=== PATIENT | female | born 1940 | race Caucasian/White ===

== ENCOUNTER 2023-11-21 14:11 | Inpatient (IN) | payer MEDICARE, OTHER, SELFPAY ==
[2023-11-21] VITALS (15 sets, daily range): BP systolic 124–177; BP diastolic 70–114; BMI 25.3; BMI 24.7
--- NOTE | 2023-11-21 09:36 | ED.CVA ---
History of Present Illness
General
Chief Complaint: CVA/TIA Symptoms
Source: patient and spouse
Exam Limitations: none
Time Seen by Provider: 11/21/23 09:21
Nursing documentation reviewed up to this point in time: agreed with
Onset of Stroke Symptoms
Onset of symptoms known: Yes
Date of onset of symptoms: 11/21/23
Time of onset of symptoms: 08:20
Date last time pt seen normal: 11/21/23
Time last time pt seen normal: 08:15
Travel History
Have you had any contact with someone who has COVID-19?: No
Do you have any symptoms of coronavirus? Fever > 100 degrees, chills, cough, shortness of breath, sore throat, loss of taste or smell, muscle aches, or headache?: No
History of Present Illness
History of Present Illness:
Patient is a pleasant 82-year-old female with a past medical history of subdural hematoma, A-fib on Eliquis, and a pacemaker, who presents with acute onset of numbness of the the left thigh, left cheek and left arm that she noticed 45 minutes prior
to arrival. Patient reports that she went to walk and almost stumbled. However, she denies weakness, headache, vision changes, and speech difficulties. Patient reports she had a brain bleed in 2000 and had similar symptoms. Patient denies all
pain. She was previously well.
Past History
Past History
ED Past Medical History: Cancer (Breast cancer), HTN, Valvular disease (Mitral regurgitation) and Psychiatric (Anxiety)
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
Social History
Tobacco: Former smoker
Alcohol: Daily (Wine 1-2 glasses)
Personal:
Living: with family
Family History
Family History: Hypertension and CAD
Review of Systems
Review of Systems
Allergies reviewed?: Yes
Other source history: family
All Other Systems: ROS reviewed and negative except as documented in HPI and ROS
Constitutional: Reports no symptoms
EENT: Reports no symptoms
Respiratory: Reports no symptoms
Cardiac: Reports no symptoms
ABD/GI: Reports no symptoms
: Reports no symptoms
Musculoskeletal: Reports no symptoms
Skin: Reports no symptoms
Neurological: Reports numbness
Endocrine: Reports no symptoms
Hematologic/Lymphatic: Reports no symptoms
Psychiatric: Reports no symptoms
Phy Exam
Physical Exam
Physical Exam:
Physical Exam
General: no apparent distress, not acutely ill. Conversational
Neck: supple. no meningeal signs. normal psoterior pharynx
Heart: s1/s2 regular rate and rhythm
Lungs: no acute respiratory distress. clear bilaterally
Abdomen: normal bowel sounds. not tender. no CVAT
Neuro: alert and orientedx3. no focal neurological deficits. Cranial nerves equal and symmetric bilaterally. 5 out of 5 strength in all extremities without drift. Speech sounds normal. Patient notes diminished
sensation of left cheek, left arm, left forearm and left thigh area.
Skin: no rash
Psychiatric: well kept. interactive and cooperative
Extremities: no edema. no calf tenderness. negative homans. good distal pulses
Scores
NIH Stroke Score
Level of Consciousness: 0 - Alert
LOC Questions: 0-Answers both correctly
LOC Commands: 0-Performs both correctly
Best Horizontal Gaze: 0-Normal
Visual Rivera: 0=Normal, no visual loss
Facial Palsy: 0=Normal, symmetrical
Motor - Right Arm: 0=No drift 10 seconds
Motor - Left Arm: 0=No drift 10 seconds
Motor - Right Le-No drift 5 seconds
Motor - Left Le-No drift 5 seconds
Limb Ataxia: 0-Absent
Sensation: 1-Mild loss
Best Language: 0-No aphasia
Dysarthria: 0-Normal
Extinction and Inattention: 0-No abnormality
Total Score:: 1
MRS Score
Modified Patrick Scale (mRS): No significant disability. Able to carry out usual activities.
Score: 1
Thrombolytic Contraindication
Inclusion and Exclusion criteria reviewed: Yes
Reasons for NON-Tx with Thrombolytics ABSOLUTE Exclusions: Patient taking oral anticoagulant and last dose within 48 hours
IAT Contraindications: Imaging doesn't show large vessel occlusion as cause of stroke
Course
Orders/Labs/Results
Orders:
Orders
11/21/23 09:21
CT Head W/o Cont STROKE ALERT Urgent
Comment:
Reason For Exam: L facial, arm, and leg numbness 45 min SHALE MINER
CT Head/Neck Ang STROKE ALERT Urgent
Comment:
Reason For Exam: L body numbness 45 min SHALE MINER
11/21/23 09:23
Electrocardiogram (*1) Urgent
Reason for Study: Fatigue / Weakness
EKG- Treatment ONCE
11/21/23 09:30
Complete Blood Count/With Diff Urgent
Comprehensive Metabolic Panel Urgent
PTT Urgent
Prothrombin Time Urgent
Abnormal Lab Results
11/21/23
09:30
MCH 31.4 H pg
(27.0-31.0)
Neutrophils % 39.5 L %
(42.2-75.2)
PT 16.3 H Sec
(11.4-14.6)
Glucose 123 H mg/dl
(70-99)
11/21/23 09:30
11/21/23 09:30
Vital Signs
Initial and Last Documented VS:
Initial Vital Signs
Temp Pulse Resp BP Pulse Ox
97.5 F 87 16 171/111 98
11/21/23 09:12 11/21/23 09:12 11/21/23 09:12 11/21/23 09:12 11/21/23 09:12
Last Documented Vital Signs
Temp Pulse Resp BP Pulse Ox
97.5 F 89 26 135/70 94
11/21/23 09:12 11/21/23 10:00 11/21/23 10:00 11/21/23 09:50 11/21/23 10:00
MDM/Problems Addressed
Differential Diagnosis Includes:
Acute CVA, aortic dissection, paresthesias
MDM/Problems Addressed:
Patient presents with acute numbness of left side of body
Chronic conditions affecting care:
Given patient has history of hypertension, she is at increased risk of hypertensive urgency and emergency
Chronic conditions affecting care: HTN
Acute Exacerbation and/or Progression of Chronic Illness:
Patient is acutely hypertensive which may be causing her neurological deficits
Acute Exacerbation and/or Progression of Chronic Illness: HTN
*Radiology
Radiology exam reviewed: radiology read reviewed
*Pulse Oximetry
Patient hypoxic: no
*EKG
Interpreted by ED Provider?: Yes
Interpretation: abnormal
Comparison EKG: no changes
Rate: normal
Rhythm: av sequential
[place]: left axis deviation
Interval: normal interval
QRS Pattern: normal QRS
Ischemia: non-specific ST changes
*Stone Planer Interpretation
Rate: normal
Interpretation: normal
Rhythm: av sequential
*Critical Care Note
Total Time (30-74mins, 75-104mins- exclusive of procedures): 35 minutes
comment:
35 minutes of critical care given to the patient including frequent reassessments of her neurological exam, speaking to neurology, the patient, the patient's , the hospitalist and reviewing prior records when patient had a subdural hematoma
Data Reviewed
Review of Other/Old Records Reveals: Progress Notes (Neurology consult by Dr. Schulz reviewed from 02/2021 when patient was evaluated for acute on subacute subdural hematoma)
Source: patient and spouse
Patient Management
Discussion with other providers: Hospitalist and Other (NEUROLOGY AT BEDSIDE)
Escalation/DeEscalation of care consider admission/obs:
Given patient's low stroke score, she is not a TNK candidate. In addition, she takes Eliquis. Patient will be admitted for likely stroke. Blood pressure greatly improved on own.
ED Attending Note
-
Portions of this chart may have been created with voice recognition software.� Occasional wrong word or��sound alike� substitutions may have occurred due to the inherent limitations of voice recognition software.
Discharge Plan
Departure
Patient Disposition: Admit
Date of Disposition: 11/21/23
Time of Disposition: 10:33
Admit to: Telemetry
Presentation/result/management discussed w/ accepting MD/DO: Hospitalist
Patient with high blood pressure during this ER visit?: Yes
Condition: Fair
Covid-19: Not Applicable
Discharge Problem:
Acute cerebrovascular accident (CVA)
Prescriptions:
No Action
carvedilol 12.5 MG tablet
12.5 mg PO BID
amitriptyline 25 MG tablet
25 mg PO HS
nhlsn-6s-cal-epa-fish oil 1 EACH capsule
2 cap PO DAILY
vit C,O-Jc-rthkr-lutein-zeaxan [PreserVision AREDS-2] 1 EACH capsule
1 cap PO BID
atorvastatin 10 MG tablet
10 mg PO QPM
multivitamin with folic acid [Tab-A-Juan Carlos] 1 TABLET tablet
1 tab PO DAILY
lisinopril 20 MG tablet
20 mg PO DAILY
polyvinyl alcohol-povidon(PF) [Refresh Classic (PF)] 10 DROPS dropperette
1 drops BOTH EYES QIDPRN PRN (Reason: EYE IRRITATION)
aspirin 81 MG tablet,delayed release (DR/EC)
81 mg PO DAILY
Referrals:
Prabhjot Johnson I. DO [Family Provider] -
Interventions
Interventions:
*Risk Screen - Suicide Last Done: 11/21/23 09:53
*General Assessment Last Done: 11/21/23 09:53
*Neglect/Abuse Screening Last Done: 11/21/23 09:53
ED- Fall Risk Assessment Last Done: 11/21/23 09:52
*ED COVID-19 Vaccine History Last Done: 11/21/23 09:53
ED- Pulmonary Assessment Last Done: 11/21/23 09:54
ED- Neurological Assessment Last Done: 11/21/23 09:54
ED- Cardiac Assessment Last Done: 11/21/23 09:54
ED Swallowing Screen Last Done: 11/21/23 10:15
[2023-11-21 09:37] LABS: % Basophils 0.9 % (0-2); % Eosinophils 4.3 % (0-6); % Immature Granulocytes 0.2 % (0-0.5); % Lymphocytes 46.9 % (20.5-51.1); % Monocytes 8.2 % (1.7-9.3); % Neutrophils 39.5 % (42.2-75.2); Absolute Basophils 0.1 10^3/uL (0-0.2); Absolute Eosinophils 0.2 10^3/uL (0-0.7); Absolute Lymphocytes 2.5 10^3/uL (1.2-3.4); Absolute Monocytes 0.4 10^3/uL (0.1-0.6); Absolute Neutrophils 2.1 10^3/uL (1.4-6.5); Hematocrit 42.6 % (37.0-47.0); Hemoglobin 14.4 g/dL (12.0-16.0); Mean Corp Hgb Conc. 33.8 g/dL (33.0-37.0); Mean Corpuscular Hgb 31.4 pg (27.0-31.0); Mean Platelet Volume 9.6 fL (7.4-10.4); Nucleated Red Blood Cells % 0 %; Platelet Count 228 10^3/uL (130-400); Red Blood Cell Count 4.58 10^6/uL (4.20-5.40); White Blood Cell Count 5.4 10^3/uL (4.8-10.8)
[2023-11-21 09:49] LABS: INR 1.32; PT 16.3 Sec (11.4-14.6)
[2023-11-21 09:50] LABS: APTT 32.3 Sec (23.4-35.0)
[2023-11-21 09:58] LABS: ALT (SGPT) 20 U/L (0-35); AST (SGOT) 33 U/L (14-36); Alkaline Phosphatase 58 U/L (38-126); Blood Urea Nitrogen 15 mg/dl (7-17); Calcium 8.8 mg/dl (8.4-10.2); Carbon Dioxide 27 mmol/L (22-30); Chloride 106 mmol/L (98-107); Estimated Creatinine Clearance 70 ml/min; Glucose 123 mg/dl (70-99); Potassium 4.3 mmol/L (3.5-5.1); Sodium 139 mmol/L (135-145); Total Protein 6.9 g/dl (6.3-8.2); eGFR > 60.00
--- NOTE | 2023-11-21 13:59 | HPS.HSE ---
Family Physician
-
Family Physician: Prabhjot Johnson
Chief Complaint
-
Left face, arm, leg numbness.
History of Present Illness
Left face, arm, leg numbness.
Patient had acute onset of the symptoms at 8:15 AM today. It started in the left leg. She also felt that at one point her left leg buckled and felt weak once and that resolved quickly. Then she started noticed similar symptoms in the left arm and
the face. Currently much improved. Left arm numbness resolved. Left leg numbness is almost gone now she has some residual numbness in the left face. No headache. No vision problem. No speech disturbance.
No associated headache, confusion during the episode, dizziness during the episode or any limb movements.
In the past 2 months that twice she had a left leg similar symptom but lasted shorter like 5 minutes.
No prior history of strokes or TIAs. She is got history of atrial fibrillation diagnosed in 2022 and was put on Eliquis.
No prior history of seizures. Not a diabetic.
No head trauma
Medical History
Past Medical History
Past Medical History: Reports Arrhythmia (afib), Cancer (Breast cancer ), CHF (Cardiomyopathy requiring AICD post cancer treatment), HTN, Hypercholesterolemia and Other (Subdural hematoma in 2000 requiring craniotomy)
Past Surgical History: Reports Cardiac (MVR 2004), Cholecystectomy and Other
Social History
Tobacco: Non-smoker
Alcohol: None
Drug: None
Personal:
Living: With Family
Family History
Family History: Not pertinent
Allergies / Home Medications
Allergies reflects when Allergies were last updated in [employer].
Home Medications with original date entered in [employer]
Allergy/Medication List:
Allergies
Allergy/AdvReac Type Severity Reaction Status Date / Time
No Known Allergies Allergy Verified 02/25/22 09:38
Home Medications
amitriptyline 25 mg tablet 25 mg PO HS Sleep 02/19/09
carvedilol 12.5 mg tablet 12.5 mg PO BID Blood pressure 02/19/09
vit C 250 mg-vit E 90 mg-zinc 40 mg-copper 1 xx-lurteu-habaen capsule (PreserVision AREDS-2) 1 cap PO BID Supplement 05/11/17
atorvastatin 10 mg tablet 10 mg PO QPM High cholesterol 02/28/21
lisinopril 20 mg tablet 20 mg PO DAILY Blood pressure 02/28/21
multivitamin with folic acid 400 mcg tablet (Tab-A-Juan Carlos) 1 tab PO DAILY 02/28/21
polyvinyl alcohol-povidone (PF) 1.4 %-0.6 % eye drops in a dropperette (Refresh Classic (PF)) 1 drops BOTH EYES QIDPRN PRN EYE IRRITATION 02/28/21
apixaban 5 mg tablet (Eliquis) 5 mg PO BID 11/21/23
omega 0-enj-fot-fish oil 1,000 mg (120 mg-180 mg) capsule (Fish Oil) 2 cap PO DAILY 11/21/23
Review of Systems
-
A 12 point ROS was completed and negative except as noted: Yes
Physical Exam
Vital Signs
Vital Signs
Temp Pulse Resp BP Pulse Ox
97.5 F 80 18 143/78 96
11/21/23 09:12 11/21/23 12:45 11/21/23 12:45 11/21/23 12:00 11/21/23 12:45
Physical Exam
General: No Apparent Distress
HEENT: Moist mucous membranes
Respiratory: Clear
Cardiac: S1/S2 and Regular Rhythm; No JVD or Carotid Bruits
GI: Soft, Non Tender, Non Distended and Normal Bowel Sounds
Musculoskeletal: No No Edema
Neuro: AO x 3 and No Motor Deficits; No Slurred Speech or Facial Droop
Psych: Calm; No Confused
Laboratory Results
-
11/21/23 09:30
11/21/23 09:30
Laboratory Results
PT 16.3 Sec (11.4-14.6) H 11/21/23:30
INR 1.32 11/21/23:30
APTT 32.3 Sec (23.4-35.0) 11/21/23:30
Total Bilirubin 1.0 mg/dl (0.2-1.3) 11/21/23:
AST 33 U/L (14-36) 11/21/23:30
ALT 20 U/L (0-35) 11/21/23:30
Alkaline Phosphatase 58 U/L (38-126) 11/21/23:
Data Reviewed
-
CT Scan: Report Reviewed by me (CT head)
Lab Data: Labs Reviewed by me
Impression/Plan
-
Acute left arm, leg and face numbness which is spontaneously improving. Recurrent left-sided numbness twice in the last 2 months. All concerning for TIA. [place] not a candidate for tPA because of mild symptoms and resolving symptoms.
Admit to telemetry.
Obtain MRI of the brain. Check imaging of the carotids. Check lipid profile. Check hemoglobin A1c.
Consult neurology.
Doubt seizures. No evidence of hypoglycemia.
Atrial fibrillation-patient currently AV paced rhythm. Continue with EliquisRito.
Hx of pacemaker/AICD - clinically not in heartfailure
Hyperlipidemia-continue with statins-check lipid panel
Hypertension-continue with her lisinopril and permissive hyper tension for the first 24 hours
Full code
--- NOTE | 2023-11-21 15:52 | CM ---
Patient seen bedside, initial assessment completed. Patient reports she lives with her in a two story home, one step to enter. Patient denies DME, VN, or SNF. Patient confirms PCP Prabhjot Johnson, pharmacy [facility]. CM will continue to
follow for discharge planning needs.
Plan; home no needs pending PT/OT evaluations.
--- NOTE | 2023-11-21 16:30 | PTCARENOTE ---
Received patient from ED via stretcher. Pt AAOX3. NIH 0 at this time. A paced on handicrafts teacher. VSS. Call wells within reach. Plan of care ongoing. at bedside.
[2023-11-21] MEDS: LIPITOR 10 MG PO (17:41)
[2023-11-21] MEDS: COREG 12.5 MG PO (20:24)
[2023-11-21] MEDS: ELIQUIS 5 MG PO (20:24)
[2023-11-21] MEDS: ELAVIL 25 MG PO (22:21)
--- NOTE | 2023-11-22 01:21 | PTCARENOTE ---
Pt with 12 beat run vtach on telemetry, pt asymptomatic, sleeping in bed- BP checked initially 97/60 repeat 104/60. House INBOUND SALES REPRESENTATIVE aware.
[2023-11-22 01:26] VITALS: BP 104/60; BP 97/60
[2023-11-22 03:27] VITALS: BP 121/75
[2023-11-22 07:17] VITALS: BP 127/81
[2023-11-22] MEDS: ELIQUIS 5 MG PO (08:10)
[2023-11-22] MEDS: ZESTRIL 20 MG PO (08:10)
[2023-11-22] MEDS: THERAGRAN 1 TABLET PO (08:10)
[2023-11-22] MEDS: COREG 12.5 MG PO (08:10)
[2023-11-22 08:42] LABS: Glycohemoglobin (HgbA1c) 5.5 % (4.0-5.6)
[2023-11-22 09:05] LABS: HDL Cholesterol 51 mg/dl; LDL Cholesterol, Calculated 52 mg/dl; Total Cholesterol 115 mg/dl (50-199); Triglyceride 62 mg/dl (10-149); Very Low Density Lipoprotein 12 mg/dl (0-30)
[2023-11-22 09:15] VITALS: BP 154/100; PULSE 82
[2023-11-22 11:45] VITALS: BP 141/90
--- NOTE | 2023-11-22 12:22 | W.PN.HOSP.TC ---
Addendum entered and electronically signed by Edison Bose MD 11/22/23 15:00:
Follow-up with EEG neurology recommends a TTE/LAYNE to evaluate for thrombus.
Patient says to me that she has scheduled ECHO for this thursday by her dog licenser and she would get it .
She doesnt want to stay to get it done here tomorrow. She understands the reasoning of thrombus evaluation and if present changes warranted for her anticoagulation.
Advised to return to ER if recurrent symptoms of leg/arm/face numbness or weaknkess
Original Note:
Today's Communication/Plan
-
DC planning
Assessment / Plan
Assessment / Plan
Acute left arm, leg and face numbness-resolved.� Recurrent left-sided numbness twice in the last 2 months.� All concerning for TIA.� [place] not a candidate for tPA because of mild symptoms and resolving symptoms.�
CT head without any evidence of stroke. CT head and neck shows no significant stenosis. Hemoglobin A1c 5.5. LDL 53. She is on anticoagulation for A-fib.
Await neurology input
Atrial fibrillation-patient currently AV paced rhythm.� Continue with EliRito mccallum.
Hx of pacemaker/AICD - clinically not in heart failure
Hyperlipidemia-continue with statins-check lipid panel
Hypertension-continue with her lisinopril
Full code
DC if ok from neurology standpoint
Anticipated Discharge: Today
Subjective/Interval History
-
Date of Service: November 22, 2023
Patient states symptoms have resolved she is back to baseline.
She tells me that she has seen by neurologist and cleared for discharge. Neurology note entry still pending.
Objective Data
-
Vital Signs:
Vital Signs
Temp Pulse Resp BP Pulse Ox
97.8 F 82 18 141/90 97
11/22/23 11:45 11/22/23 11:45 11/22/23 11:45 11/22/23 11:45 11/22/23 11:45
I&O
11/21/23 11/22/23 11/23/23
06:59 06:59 06:59
Intake Total 440 / 440
Balance 440 / 440
Review of Systems
-
Respiratory: Denies Trouble Breathing
Cardiac: Denies Chest Pain or Palpitations
Neuro: Denies Dizzy, Headache, Weakness, Numbness, Ataxia or Tremors
Physical Exam
-
General: Comfortable
Respiratory: Clear to Auscultation
Cardiac: Regular Rhythm and S1/S2
Neuro: AO x 3 and No Motor Deficits; Negative Tremors, Slurred Speech or Facial Droop
Psych: Calm; Negative Confused or Agitated
Data Reviewed
-
Labs: Labs Reviewed by me
--- NOTE | 2023-11-22 12:26 | W.DS.TRANS ---
DC Summary - Smoking Pipe Coater
-
Discharge Instructions:
Discharge Diagnosis/Procedures Possible TIA
Diet Low Cholesterol,2 Gram Sodium
Activity As tolerated
Driving Restrictions As prior to admission
Bathing Restrictions None
Instructions:
Stand-Alone Forms:
Changes to Home Medications: No
Discharge Medications:
DC Medications w/original date entered in [employer]
amitriptyline 25 mg tablet 25 mg PO HS Sleep 02/19/09
carvedilol 12.5 mg tablet 12.5 mg PO BID Blood pressure 02/19/09
vit C 250 mg-vit E 90 mg-zinc 40 mg-copper 1 vd-omlwtw-dbnsnl capsule (PreserVision AREDS-2) 1 cap PO BID Supplement 05/11/17
atorvastatin 10 mg tablet 10 mg PO QPM High cholesterol 02/28/21
lisinopril 20 mg tablet 20 mg PO DAILY Blood pressure 02/28/21
multivitamin with folic acid 400 mcg tablet (Tab-A-Juan Carlos) 1 tab PO DAILY Supplement 02/28/21
polyvinyl alcohol-povidone (PF) 1.4 %-0.6 % eye drops in a dropperette (Refresh Classic (PF)) 1 drops BOTH EYES QIDPRN PRN EYE IRRITATION 02/28/21
apixaban 5 mg tablet (Eliquis) 5 mg PO BID Blood Clot Prevention/Tx 11/21/23
omega 3-csd-tpc-fish oil 1,000 mg (120 mg-180 mg) capsule (Fish Oil) 2 cap PO DAILY Supplement 11/21/23
Home Medication Changes
Pending Results: No
--- NOTE | 2023-11-22 13:06 | CM ---
Patient seen, discussed plan for discharge today. IMM reviewed, signed, placed in patients chart. Patient reports her will provide transportation home. CM will continue to follow for discharge planning needs.
Plan; home no needs.
[2023-11-22 15:21] VITALS: BP 157/99
--- NOTE | 2023-11-22 16:04 | W.DCSUMMARY ---
Discharge Summary
Discharge Data
Date of Admission: 11/21/23
Date of Discharge: 11/22/23
-
Pending Results: No
Hospital Course
Primary diagnosis:
Possible transient ischemic attack
Secondary diagnosis:
Hypertension
Hyperlipidemia
Paroxysmal Atrial fibrillation on anticoagulation
Pacemaker/AICD in situ
History of breast cancer status postchemotherapy and mastectomy
History of subdural hemorrhage status post craniotomy
Hospital course:
Patient presented with acute onset of left leg numbness which later went to the and to the face. No motor weakness noted. No other neurological symptoms or deficits noted. She had 2 similar episode affecting the left leg in the last 2 months.
Both of them are short-lived less than 5 minutes. She had a CT of the head which was negative for any stroke. She had a CT angiogram of the head and neck which did not show any hemodynamically significant stenosis. Blood pressure was under goal.
LDL was 52. Hemoglobin A1c was 5.5. Was seen by neurology who felt this may be a TIA. She is already on Eliquis for anticoagulation. They recommended to get a echocardiogram to look for any thrombus and if present may be consider an alternative
anticoagulation.
Patient's symptoms are already resolved and she was adamant of leaving home tonight as she already has a plan for echocardiogram on this Thursday by her data processing operator. She was advised to return to the hospital if she has any recurrent symptoms. No
changes were made to her medication regimen.
Consultants on board:
Neurology-Dr. Garcia
Discharge Plan
-
Patient Disposition: Home (Routine Discharge)
Discharge Diagnosis/Procedures: Possible TIA
Diet: Low Cholesterol and 2 Gram Sodium
Activity: As tolerated
Driving Restrictions: As prior to admission
Bathing Restrictions: None
Activity Restrictions/Additional Instructions:
Obtain Echocardiogram as planned as OP
If you develop any recurrent symptoms of leg/arm/face numbness come to ER immediately
Referrals:
Alex,Prabhjot I., DO [Family Provider] - in less than 1 week
Judy Garcia MD [Active] - in two weeks
Prescriptions:
Continued
carvedilol 12.5 MG tablet
12.5 mg PO BID
amitriptyline 25 MG tablet
25 mg PO HS
PreserVision AREDS-2 1 EACH capsule
1 cap PO BID
atorvastatin 10 MG tablet
10 mg PO QPM
multivitamin with folic acid [Tab-A-Juan Carlos] 1 TABLET tablet
1 tab PO DAILY
lisinopril 20 MG tablet
20 mg PO DAILY
Refresh Classic (PF) 10 DROPS dropperette
1 drops BOTH EYES QIDPRN PRN (Reason: EYE IRRITATION)
omega 4-axs-hef-fish oil [Fish Oil] 1,000 mg (120 mg-180 mg) Capsule
2 cap PO DAILY
Eliquis 5 mg Tablet
5 mg PO BID
Discharge Orders:
Discharge Patient (As Directed); Ordered 11/22/23
Ordered By: Edison Bose
Discharge Date and Time
Discharge Date/Time: 11/22/23 15:24
== END 2023-11-22 15:24 | disposition home or self-care (01) | DRG 69 ==
LOC: 4 EAST ACU 14:11
PROVIDERS: ADMITTING PHYSICIAN Internal Medicine; EMERGENCY PHYSICIAN Emergency Medicine; FAMILY PHYSICIAN Internal Medicine
DX: G45.9 Transient cerebral ischemic attack, unspecified (principal); E78.00 Pure hypercholesterolemia, unspecified; I11.0 Hypertensive heart disease with heart failure; I50.9 Heart failure, unspecified; I48.0 Paroxysmal atrial fibrillation; Z95.810 Presence of automatic (implantable) cardiac defibrillator; Z85.3 Personal history of malignant neoplasm of breast
CPT/HCPCS: 70450; 70496; 70498; 80053; 80061; 83036; 85025; 85610; 85730; 93005; 97162; 99291; Q9967

== ENCOUNTER → 2023-11-24 14:46 | Outpatient (REF) | payer MEDICARE, OTHER, SELFPAY ==
--- NOTE | 2023-11-21 09:49 | CON.NEURO ---
Consultation
Order
Date of Consultation: 11/21/23
Requesting Provider:
Reason for Consult: stroke alert
called in at 9:14 AM
CC: numbness
HPI: This is an 82-year-old right-handed woman who presented to [facility] on November 21, 2023 with sensory deficits. According to the patient she developed an acute left face arm and leg numbness that started around 8 AM today in the
morning. No reports of weakness, change in vision, speech or abnormal movements. She did take her Eliquis today in the morning
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
ER VS: 171/111, 87, afebrile
PDMP: none
Labs: glucose�123, normal sodium, creatinine, WBCs
CT head/neck-no hemodynamically significant stenosis
EKG: Atrial-sensed ventricular-paced rhythm
PMH: L breast CA, PA-Fib, Vtach, L SAH/SDH?, CAD, HTN, DLP, CHF, cardiomyopathy thrombophilia, migraine JOHN
PSH: left craniotomy�, PPM/AICD, MVR, L mastectomy, �cholecystectomy
SH:; former smoker;
All: Macrolides
ROS:Constitutional: Negative. Negative for chills, fever and unexpected weight change.
HENT: Negative for ear pain, hearing loss, tinnitus and trouble swallowing.
Eyes: Negative. Negative for photophobia, pain and visual disturbance.
Respiratory: Negative for cough, choking and shortness of breath.
Cardiovascular: Negative for chest pain, palpitations and leg swelling.
Gastrointestinal: Negative for abdominal pain and vomiting.
Endocrine: Negative. Negative for cold intolerance.
Genitourinary: Negative for dysuria, flank pain and urgency.
Musculoskeletal: Negative for back pain, gait problem, neck pain and neck stiffness.
Skin: Negative for rash.
Allergic/Immunologic: Negative. Negative for immunocompromised state.
Neurological: Positive for left-sided numbness
Psychiatric/Behavioral: Negative for behavioral problems, confusion and hallucinations.
General: Well developed. In no acute distress.
Cardio: Regular rate and rhythm without murmur. Extremities are without cyanosis or edema.
Neuro:
Mental Status: Alert, oriented to person, place, and date. Normal attention and recall. Good fund of knowledge. Follows complex requests across the midline. Comprehension, naming, and repetition intact.
Cranial Nerves: . Pupils are equally round and reactive to light. EOMs full. Visual kate full to confrontation. No ptosis. No nystagmus. V1-V3 intact to light touch and pinprick bilaterally, symmetric. Face symmetric. Normal hearing AU.
The palate elevated well. SCMs and traps 5/5. Tongue midline. No dysarthria.
Motor: Normal bulk and tone. No pronator or arm drift. Strength 5/5 throughout. No clonus.
Sensory: Normal LL, no extinction to DSS
Coordination: No dysmetria or tremor.
Gait: deferred
Assessment and Plan:
I. Left hemisensory deficits. Not a candidate for IV thrombolysis due to active systemic anticoagulation.
II. History of spontaneous L SDH/SAH? s/p remote to complete
III. HTN
-Continue Telemetry monitoring.
-Repeat CT head within 24 hours
-Continue Eliquis 5 mg twice daily
-AICD interrogated
-Lipitor 40 mg QHS.
-LAYNE
-Cardiology for
-DVT prophylaxis.
I personally reviewed all radiology and labs along with past medical records pertinent to current medical problems. Total time spent in patient care is 60 minutes.
Thank you for allowing us to participate in the care of this patient. We will continue to follow. Please do not hesitate to contact us with any questions or concerns.
Subjective/Objective
Subjective Data
Date of Service: November 21, 2023
Objective Data
Patient Allergies
No Known Allergies Allergy (Verified 02/25/22 09:38)
Medications
-
Home Medications
Medication Instructions Recorded
amitriptyline 25 mg tablet 25 mg PO HS Sleep 02/19/09
carvedilol 12.5 mg tablet 12.5 mg PO BID Blood pressure 02/19/09
akjpg5-mgq-vbc-other kllvo0u-nauh 2 cap PO DAILY Supplement 01/24/14
oil 360 mg-1,200 mg capsule
vit C 250 mg-vit E 90 mg-zinc 40 1 cap PO BID Supplement 05/11/17
mg-copper 1 do-xdpgxs-xedbtz
capsule (PreserVision AREDS-2)
atorvastatin 10 mg tablet 10 mg PO QPM High cholesterol 02/28/21
lisinopril 20 mg tablet 20 mg PO DAILY Blood pressure 02/28/21
multivitamin with folic acid 400 1 tab PO DAILY 02/28/21
mcg tablet (Tab-A-Juan Carlos)
polyvinyl alcohol-povidone (PF) 1 drops BOTH EYES QIDPRN PRN EYE 02/28/21
1.4 %-0.6 % eye drops in a IRRITATION
dropperette (Refresh Classic (PF))
aspirin 81 mg tablet,delayed 81 mg PO DAILY 02/25/22
release
--- NOTE | 2023-11-22 12:42 | W.PN.NEURO.1 ---
Today's Communication / Plan
-
.
Subjective/Objective
Subjective Data
Date of Service: November 22, 2023
Ms. Henson states that her left hemisensory deficits resolved in less than 24 hours. No reports of abnormal movements, headache motor, visual or balance changes.
Review of vital signs was notable for transient hypotension down to 97/60.
PMH: L breast CA,�PA-Fib,�Vtach, L SAH/SDH?, CAD, HTN, DLP, CHF, cardiomyopathy thrombophilia, migraine JOHN
PSH: left craniotomy�,�PPM/AICD, MVR, L mastectomy, �cholecystectomy
SH:; former smoker;
All: Macrolides
ROS:Constitutional: Negative. Negative for chills, fever and unexpected weight change.
HENT: Negative for ear pain, hearing loss, tinnitus and trouble swallowing.
Eyes: Negative. Negative for photophobia, pain and visual disturbance.
Respiratory: Negative for cough, choking and shortness of breath.
Cardiovascular: Negative for chest pain, palpitations and leg swelling.
Gastrointestinal: Negative for abdominal pain and vomiting.
Endocrine: Negative. Negative for cold intolerance.
Genitourinary: Negative for dysuria, flank pain and urgency.
Musculoskeletal: Negative for back pain, gait problem, neck pain and neck stiffness.
Skin: Negative for rash.
Allergic/Immunologic: Negative. Negative for immunocompromised state.
Neurological: Positive for transient left-sided numbness
Psychiatric/Behavioral: Negative for behavioral problems, confusion and hallucinations.
�
�
General: Well developed. In no acute distress.
Cardio: Regular rate and rhythm without murmur. Extremities are without cyanosis or edema.
Neuro:
Mental Status: Alert, oriented to person, place, and date.� Normal attention and recall.� Good fund of knowledge. Follows complex requests across the midline.� Comprehension, naming, and repetition intact.�
Cranial Nerves: . Pupils are equally round and reactive to light.� EOMs full.� Visual kate full to confrontation.� No ptosis.� No nystagmus.� V1-V3 intact to light touch and pinprick bilaterally, symmetric.� Face symmetric.� Normal hearing AU.�
The palate elevated well.� SCMs and traps 5/5.� Tongue midline.� No dysarthria.
Motor:� � � � Normal bulk and tone.� No pronator or arm drift.� Strength 5/5 throughout. No clonus.
Sensory: � � Normal LL, no extinction to DSS
Coordination: No dysmetria or tremor.�
Gait: � � � � � deferred
Assessment and Plan:
�
I.� TIA(embolic vs lacunar mechanism). Moderate risk of ischemic stroke. ABCD2 score-4. 7-Day Stroke Risk: 5.9%, 90-Day Stroke Risk: 9.8%. Deferential diagnosis includes migraine aura, simple seizure
II. PA-Fib.
II.� History of spontaneous L SDH/SAH? s/p remote to complete
III. HTN
-Continue Telemetry monitoring.
-Continue Eliquis 5 mg twice daily
-Avoid CY inducers
-Lipitor 40 mg QHS.
-Cardiology follow up
-TTE/LAYNE(to rule out intramural thrombus). If a thrombus is present, it is reasonable to change to another DOAC, but optimal treatment is uncertain, and no consensus exists. Patients with left ventricular thrombus,�warfarin�may be superior to DOAC
for reducing the risk of stroke or systemic embolism(https://pubmed.ncbi.nlm.nih.gov/36546562/)
-OP EEG
�
I personally reviewed all radiology and labs along with past medical records pertinent to current medical problems. Total time spent in patient care is 35 minutes.
�
Thank you for allowing us to participate in the care of this patient. We will continue to follow. Please do not hesitate to contact us with any questions or concerns
Objective Data
Patient Allergies
No Known Allergies Allergy (Verified 02/25/22 09:38)
== END ==
LOC: HWRCS 14:46
PROVIDERS: ATTENDING PHYSICIAN Internal Medicine Cardiovascular Disease; FAMILY PHYSICIAN Internal Medicine
DX: I50.20 Unspecified systolic (congestive) heart failure (principal)
CPT/HCPCS: 93306

== ENCOUNTER 2023-12-17 19:04 | Inpatient (IN) | payer MEDICARE, OTHER, SELFPAY ==
[2023-12-17] VITALS (9 sets, daily range): BP systolic 107–156; BP diastolic 61–105; BMI 25.4
--- NOTE | 2023-12-17 16:02 | ED.GENMED ---
History of Present Illness
General
Chief Complaint: Heart Rate Problem
Source: patient
Exam Limitations: none
Time Seen by Provider: 12/17/23 15:37
Travel History
Have you had any contact with someone who has COVID-19?: No
Do you have any symptoms of coronavirus? Fever > 100 degrees, chills, cough, shortness of breath, sore throat, loss of taste or smell, muscle aches, or headache?: No
History of Present Illness
History of Present Illness:
Patient presents to the emergency department with complaints of being in and out of atrial fibrillation. States that this has been a chronic issue. Pacemaker. She was scheduled to have a elective cardioversion as an outpatient yesterday but this
was found to be in sinus rhythm. Feels like she is back in A-fib today. She notes mild chest pressure and some mild shortness of breath. Denies lower extremity edema. Denies fevers chills.
Past History
Past History
ED Past Medical History: Cancer (Breast cancer), HTN, Valvular disease (Mitral regurgitation) and Psychiatric (Anxiety)
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
Social History
Tobacco: Former smoker
Alcohol: Daily (Wine 1-2 glasses)
Personal:
Living: with family
Family History
Family History: Hypertension and CAD
Phy Exam
Physical Exam
Physical Exam:
GENERAL APPEARANCE: NAD, well developed/ well nourished
EYES lids/conjunctiva normal
HEAD/NECK normocephalic atraumatic, neck is supple.
RESPIRATORY respiratory effort normal, speaks in full sentences, no accessory muscle use. Lungs clear to auscultation without rhonchi, wheezes, rales
CARDIAC Irregularly irregular rhythm, tachycardia , no edema
ABDOMINAL Soft, ND/NT. No pulsatile masses on exam, rebound tenderness, Casey sign or pain over Mcburney's point.
MUSCLES/EXTREMITIES No abnormal range of motion, no swelling.
SKIN Warm, pink and dry. No rashes
NEUROLOGICAL Speech is clear and appropriate. Normal level of consciousness. 5/5 strength in all extremities.
PSYCH Normal mood and affect. Judgement/competence is appropriate
Course
Orders/Labs/Results
Orders:
Orders
12/17/23 13:12
EKG [Electrocardiogram (*1)] Urgent
Reason for Study: Tachycardia
EKG- Treatment ONCE
12/17/23 16:07
CR Chest - 2 Views Urgent
Comment:
Reason For Exam: chest pain
12/17/23 16:24
Complete Blood Count/With Diff Urgent
Comprehensive Metabolic Panel Urgent
Troponin I Urgent
12/17/23 18:52
Admit/Transfer Patient As Directed
Co-Sign Provider:
Level of Care: Inpatient admission
Assign to:: Telemetry
Physician / Group: christian
Diagnosis: afib
Reason for Telemetry: Arrhythmia
Date to Stop Telemetry: 12/20/23
Time to Stop Telemetry: 11:00
Reason for Hospitalization: afib
Expected length of stay greater than two midnights?: Yes
ELOS- Estimated Length of Stay in days: 2
I certify the patient meets the requirements for IP care: Yes
12/17/23 18:55
Code Status As Directed
Resuscitation Status: Full Code
12/20/23 11:00
DC Protocol for Telemetry ONCE
Abnormal Lab Results
12/17/23
16:24
RBC 4.07 L 10^6/uL
(4.20-5.40)
MCH 31.4 H pg
(27.0-31.0)
Absolute Monos (auto) 0.9 H 10^3/uL
(0.1-0.6)
Monocytes % 10.5 H %
(1.7-9.3)
Sodium 133 L mmol/L
(135-145)
Creatinine 0.5 L mg/dL
(0.6-1.0)
Glucose 104 H mg/dl
(70-99)
12/17/23 16:24
12/17/23 16:24
Vital Signs
Initial and Last Documented VS:
Initial Vital Signs
Temp Pulse Resp BP Pulse Ox
98.4 F 113 18 116/95 95
12/17/23 13:41 12/17/23 13:41 12/17/23 13:41 12/17/23 13:41 12/17/23 13:41
Last Documented Vital Signs
Temp Pulse Resp BP Pulse Ox
98.4 F 113 16 109/92 95
12/17/23 13:41 12/17/23 18:30 12/17/23 18:15 12/17/23 18:00 12/17/23 18:30
*Critical Care Note
Total Time (30-74mins, 75-104mins- exclusive of procedures): Not Applicable
ED Attending Note
ED Attending Note
ED Attending Note:
Patient presents with tachycardia and slight chest pressure. EKG showing likely A-fib with episodes of pacing. She is hemodynamically stable and well-appearing. Discussed case with shop clerk on-call Dr. Sandhu. He suspects she is in atrial
fibrillation and will need to have adjustments to her pacemaker and possible cardioversion in the AM. Admitted to hospitalist
-
Portions of this chart may have been created with voice recognition software.� Occasional wrong word or��sound alike� substitutions may have occurred due to the inherent limitations of voice recognition software.
Discharge Plan
Departure
Patient Disposition: Admit
Date of Disposition: 12/17/23
Time of Disposition: 18:30
Admit to: Telemetry
Admit to doctor: Miguel Angel
Presentation/result/management discussed w/ accepting MD/DO: Hospitalist
Discharge Problem:
Atrial fibrillation
Interventions
Interventions:
*Risk Screen - Suicide Last Done: 12/17/23 13:43
*General Assessment Last Done: 12/17/23 13:43
*Neglect/Abuse Screening Last Done: 12/17/23 13:43
ED- Cardiac Assessment Last Done: 12/17/23 15:55
ED- Pulmonary Assessment Last Done: 12/17/23 15:55
[2023-12-17 16:30] LABS: % Basophils 0.7 % (0-2); % Eosinophils 2.2 % (0-6); % Immature Granulocytes 0.2 % (0-0.5); % Lymphocytes 33.2 % (20.5-51.1); % Monocytes 10.5 % (1.7-9.3); % Neutrophils 53.2 % (42.2-75.2); Absolute Basophils 0.1 10^3/uL (0-0.2); Absolute Eosinophils 0.2 10^3/uL (0-0.7); Absolute Monocytes 0.9 10^3/uL (0.1-0.6); Absolute Neutrophils 4.8 10^3/uL (1.4-6.5); Hematocrit 37.3 % (37.0-47.0); Hemoglobin 12.8 g/dL (12.0-16.0); Mean Corp Hgb Conc. 34.3 g/dL (33.0-37.0); Mean Corpuscular Hgb 31.4 pg (27.0-31.0); Mean Corpuscular Volume 91.6 fL (81.0-99.0); Mean Platelet Volume 8.6 fL (7.4-10.4); Nucleated Red Blood Cells % 0 %; Platelet Count 367 10^3/uL (130-400); Red Blood Cell Count 4.07 10^6/uL (4.20-5.40); Red Cell Dist. Width 12.6 % (11.5-14.5)
[2023-12-17 16:50] LABS: ALT (SGPT) 19 U/L (0-35); AST (SGOT) 27 U/L (14-36); Albumin 3.6 g/dl (3.5-5.0); Alkaline Phosphatase 89 U/L (38-126); Blood Urea Nitrogen 15 mg/dl (7-17); Calcium 9.3 mg/dl (8.4-10.2); Carbon Dioxide 26 mmol/L (22-30); Chloride 99 mmol/L (98-107); Estimated Creatinine Clearance 69 ml/min; Glucose 104 mg/dl (70-99); Potassium 4.3 mmol/L (3.5-5.1); Sodium 133 mmol/L (135-145); Total Bilirubin 0.4 mg/dl (0.2-1.3); Total Protein 6.6 g/dl (6.3-8.2); eGFR > 60.00
[2023-12-17 16:54] LABS: Troponin I < 0.012 ng/ml
--- NOTE | 2023-12-17 18:56 | HPS.HSE ---
Addendum entered and electronically signed by Kota Russell MD 12/17/23 20:43:
Cardiology adjusted pacemaker and recommended Amiodarone 400 mg TID and even potentially diltiazem if needed.
Original Note:
Family Physician
-
Family Physician: Prabhjot Johnson
Chief Complaint
-
chest pressure
History of Present Illness
83-year-old female past medical history of paroxysmal atrial fibrillation, coronary artery disease, chemotherapy-induced cardiomyopathy, ventricular tachycardia status post ICD, mitral valve repair, hyperlipidemia, hypertension, thrombophilia, left
breast cancer, migraines, cholelithiasis, subdural hematoma status postcraniotomy, anxiety, presenting with complaints of being in and out of atrial fibrillation.
She developed cough 2 weeks ago and was diagnosed with viral bronchitis. Cough is improved but continues to be present slightly. Since that time she was told that she was in atrial fibrillation on her ICD. She does not know when she is in atrial
fibrillation but has been having intermittent chest pressure and shortness of breath over the past 2 weeks. He denies dizziness or syncope. She denies any lower extremity edema.
She was scheduled to have elective cardioversion as outpatient this morning but was found to be in sinus rhythm.
Patient denies smoking. She drinks 1 glass of alcohol 4-5 times a week.
Medical History
Past Medical History
Past Medical History: Reports Other (paroxysmal atrial fibrillation, coronary artery disease, chemotherapy-induced cardiomyopathy, ventricular tachycardia status post ICD, mitral valve repair, hyperlipidemia, hypertension, thrombophilia, left breast
cancer, migraines, cholelithiasis, subdural hematoma status postcraniotomy, anxiety, )
Past Surgical History: Reports Other ( left craniotomy , PPM/AICD, MVR, L mastectomy, cholecystectomy)
Social History
Tobacco: Non-smoker
Alcohol: Occasional
Drug: None
Family History
Family History: Not pertinent
Allergies / Home Medications
Allergies reflects when Allergies were last updated in [employer].
Home Medications with original date entered in [employer]
Allergy/Medication List:
Allergies
Allergy/AdvReac Type Severity Reaction Status Date / Time
nitrofurantoin Allergy facial Verified 12/17/23 16:05
[From Macrobid] flushing
Home Medications
amitriptyline 25 mg tablet 25 mg PO HS Sleep 02/19/09
carvedilol 12.5 mg tablet 25 mg PO BID Blood pressure 02/19/09
vit C 250 mg-vit E 90 mg-zinc 40 mg-copper 1 qw-[id number]-dxhfpc capsule (PreserVision AREDS-2) 1 cap PO BID Supplement 05/11/17
atorvastatin 10 mg tablet 10 mg PO QPM High cholesterol 02/28/21
lisinopril 20 mg tablet 20 mg PO DAILY Blood pressure 02/28/21
multivitamin with folic acid 400 mcg tablet (Tab-A-Juan Carlos) 1 tab PO DAILY Supplement 02/28/21
polyvinyl alcohol-povidone (PF) 1.4 %-0.6 % eye drops in a dropperette (Refresh Classic (PF)) 1 drops BOTH EYES QIDPRN PRN EYE IRRITATION 02/28/21
apixaban 5 mg tablet (Eliquis) 5 mg PO BID Blood Clot Prevention/Tx 11/21/23
omega 6-jzl-xnq-fish oil 1,000 mg (120 mg-180 mg) capsule (Fish Oil) 2 cap PO DAILY Supplement 11/21/23
Review of Systems
-
History Source: Patient
A 12 point ROS was completed and negative except as noted: Yes
Constitutional: Reports No Symptoms
EENT: Reports No Symptoms
Respiratory: Reports See HPI
Cardiac: Reports See HPI
Abdomen/GI: Reports No Symptoms
: Reports No Symptoms
Musculoskeletal: Reports No Symptoms
Skin: Reports No Symptoms
Neurological: Reports No Symptoms
Endocrine: Reports No Symptoms
Hematologic/Lymphatic: Reports No Symptoms
Psych: Reports No Symptoms
Physical Exam
Vital Signs
Vital Signs
Temp Pulse Resp BP Pulse Ox
98.4 F 113 16 109/92 95
12/17/23 13:41 12/17/23 18:30 12/17/23 18:15 12/17/23 18:00 12/17/23 18:30
Physical Exam
General: Well Developed, Well Nourished and No Apparent Distress
HEENT: NormoCephalic, Moist mucous membranes and Atraumatic
Respiratory: Clear
Cardiac: S1/S2 and Regular Rhythm; No Murmur or Rub
GI: Soft, Non Tender, Non Distended and Normal Bowel Sounds; No Organomegaly
Rectal: Deferred by Provider
Musculoskeletal: No Clubbing, No Cyanosis and No Edema
Skin: No Rash
Neuro: Nonfocal/grossly intact
Laboratory Results
-
12/17/23 16:24
12/17/23 16:24
Laboratory Results
Total Bilirubin 0.4 mg/dl (0.2-1.3) 12/17/23 16:24
AST 27 U/L (14-36) 12/17/23 16:24
ALT 19 U/L (0-35) 12/17/23 16:24
Alkaline Phosphatase 89 U/L (38-126) 12/17/23 16:24
Troponin I < 0.012 ng/ml 12/17/23 16:24
Data Reviewed
-
Lab Data: Labs Reviewed by me
Old Records: Reviewed
Impression/Plan
-
IMPRESSION:
PLAN:
# Tachycardia likely symptomatic atrial fibrillation
# History of paroxysmal atrial fibrillation
-EKG shows ventricular paced rhythm with PVCs/aberrant complexes
-Troponin negative
-ICD being interrogated, settings may need to be adjusted
-Plan for cardioversion in the morning as per cardiology
-N.p.o. past midnight
-Continue Eliquis
Coronary artery disease
Chemotherapy induced cardiomyopathy with reduced EF
-Recent echo with EF of 45%
-Continue Coreg
History of ventricular tachycardia status post ICD
History of mitral regurgitation status post valve repair
Essential hypertension
-Continue lisinopril
Hyperlipidemia
-Continue statin
History of left breast cancer
History of migraines
History of subdural hematoma status postcraniotomy
History of thrombophilia
Anxiety/depression
-Continue amitriptyline
Cholelithiasis
Full code
DVT prophylaxis�Eliquis
Cardiac diet
[2023-12-17] MEDS: OCUVITE SOFTGEL 1 CAP PO (20:38)
[2023-12-17] MEDS: COREG 25 MG PO (20:38)
[2023-12-17] MEDS: ELIQUIS 5 MG PO (20:38)
[2023-12-17] MEDS: LIPITOR 10 MG PO (20:38)
[2023-12-17] MEDS: ELAVIL 25 MG PO (23:08)
[2023-12-17] MEDS: PACERONE 400 MG PO (23:09)
[2023-12-18] VITALS (10 sets, daily range): BP systolic 102–126; BP diastolic 64–87; BMI 24.4
[2023-12-18 05:08] LABS: % Basophils 0.9 % (0-2); % Eosinophils 3.7 % (0-6); % Immature Granulocytes 0.3 % (0-0.5); % Monocytes 12.9 % (1.7-9.3); % Neutrophils 46.2 % (42.2-75.2); Absolute Basophils 0.1 10^3/uL (0-0.2); Absolute Eosinophils 0.3 10^3/uL (0-0.7); Absolute Lymphocytes 2.7 10^3/uL (1.2-3.4); Absolute Neutrophils 3.5 10^3/uL (1.4-6.5); Hematocrit 34.6 % (37.0-47.0); Hemoglobin 11.9 g/dL (12.0-16.0); Mean Corp Hgb Conc. 34.4 g/dL (33.0-37.0); Mean Corpuscular Hgb 31.3 pg (27.0-31.0); Mean Corpuscular Volume 91.1 fL (81.0-99.0); Mean Platelet Volume 8.8 fL (7.4-10.4); Nucleated Red Blood Cells % 0 %; Platelet Count 343 10^3/uL (130-400); Red Cell Dist. Width 12.7 % (11.5-14.5); White Blood Cell Count 7.6 10^3/uL (4.8-10.8)
[2023-12-18 05:41] LABS: ALT (SGPT) 16 U/L (0-35); AST (SGOT) 27 U/L (14-36); Albumin 2.8 g/dl (3.5-5.0); Alkaline Phosphatase 59 U/L (38-126); Blood Urea Nitrogen 16 mg/dl (7-17); Carbon Dioxide 29 mmol/L (22-30); Chloride 106 mmol/L (98-107); Estimated Creatinine Clearance 69 ml/min; Glucose 92 mg/dl (70-99); Potassium 4.3 mmol/L (3.5-5.1); Sodium 135 mmol/L (135-145); Total Bilirubin 0.4 mg/dl (0.2-1.3); Total Protein 5.6 g/dl (6.3-8.2); eGFR > 60.00
[2023-12-18] MEDS: COREG 25 MG PO ×2 (09:25→20:29)
[2023-12-18] MEDS: PACERONE 400 MG PO (09:26)
[2023-12-18] MEDS: ELIQUIS 5 MG PO ×2 (09:26→20:29)
[2023-12-18] MEDS: OCUVITE SOFTGEL 1 CAP PO (09:26)
[2023-12-18] MEDS: ZESTRIL 20 MG PO (09:27)
[2023-12-18] MEDS: THERAGRAN 1 TABLET PO (09:27)
--- NOTE | 2023-12-18 09:37 | W.PN.HOSP.TC ---
Today's Communication/Plan
-
cont air sampling and monitoring
Lasix diuresis and amiodarone rhythm control as per cardio
possible discharge tomorrow home no needs
Assessment / Plan
Assessment / Plan
Physical Exam
General: No acute distress, appears comfortable at this time
HEENT: NormoCephalic, Moist mucous membranes and Atraumatic
Respiratory: Clear
Cardiac: S1/S2 and Regular Rhythm; No Murmur or Rub
GI: Soft, Non Tender, Non Distended and Normal Bowel Sounds; No Organomegaly
Musculoskeletal: No Clubbing, No Cyanosis and No Edema
Skin: No Rash
Neuro: AOx3
83F pAfib CAD chemo-induced cardiomyopathy VT s/p ICD MVR HTN HLD Thrombophilia Lt Breast Ca Migraines Subdural Hematoma s/p Craniotomy p/w symptomatic afib underwent successful cardioversion.
# Tachycardia, symptomatic atrial fibrillation
# History of paroxysmal atrial fibrillation
-EKG shows ventricular paced rhythm with PVCs/aberrant complexes
-Troponin negative
-ICD interrogated and adjusted as per cardio
-Cardio eval appreciated successful cardioversion performed 12/17
-Amiodarone started, continue
-Continue Eliquis
Coronary artery disease
Chemotherapy induced cardiomyopathy with reduced EF
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
-Recent echo with EF of 45%
-Continue Coreg
-lasix diuresis as per cardio
History of ventricular tachycardia status post ICD
History of mitral regurgitation status post valve repair
Essential hypertension
-Continue lisinopril
Hyperlipidemia
-Continue statin
History of left breast cancer
History of migraines
History of subdural hematoma status postcraniotomy
History of thrombophilia
Anxiety/depression
-Continue amitriptyline
Cholelithiasis
Full code
DVT prophylaxis�Eliquis
Cardiac diet
discussed with patient, her Justice, Nurse, and Cardiology
I spent a total of 50 minutes with the patient or on the floor. More than 50% of this time involved counseling and coordination of care.
Anticipated Discharge: Within 24 hours
Subjective/Interval History
-
Date of Service: December 18, 2023
Seen and examined at bedside in no acute distress sitting up comfortably in bed. Justice present during evaluation. Cough from recent bronchitis persists, patient otherwise reports feeling well following cardioversion, ambulating without
issues including chest pain/palpitations/SOB.
Objective Data
-
Labs:
Laboratory Results
12/18/23
04:56
WBC 7.6
Hgb 11.9 L
Hct 34.6 L
Plt Count 343
Sodium 135
Potassium 4.3
Chloride 106
Carbon Dioxide 29
BUN 16
Creatinine 0.6
Glucose 92
Calcium 8.0 L
Total Bilirubin 0.4
AST 27
ALT 16
Alkaline Phosphatase 59
Vital Signs:
Vital Signs
Temp Pulse Resp BP Pulse Ox
98.1 F 83 18 127/93 94
12/18/23 07:14 12/18/23 09:25 12/18/23 07:14 12/18/23 09:25 12/18/23 07:14
--- NOTE | 2023-12-18 10:06 | CON.CAR ---
Addendum entered and electronically signed by Mami Meier DO 12/18/23 13:53:
Cardioversion successful with restoring sinus rhythm at 200 J x 1
Addendum entered and electronically signed by Mami Meier DO 12/18/23 13:39:
I saw and examined the patient.
The Crematory Attendant's note was reviewed and I agree with the note.
Comment: Seen and examined in ED bed 14 with at bedside. Carmen is a 83-year-old female with past medical history significant for mitral valve repair, hypertension, hyperlipidemia, paroxysmal atrial fibrillation on chronic anticoagulation with
Eliquis, nonischemic cardiomyopathy, chronic heart failure with mildly reduced ejection fraction, ventricular tachycardia status post ICD, breast cancer status post chemo and mastectomy and spontaneous subdural hemorrhage status postcraniotomy in
2020 who presented to emergency department 12/17/2023 with complaints of palpitations, tachycardia, chest tightness and shortness of breath. Patient had bad respiratory/bronchitis infection which started shortly after and was treated mostly
with supportive care. She was on antibiotics briefly for UTI and early November. During this time she developed atrial fibrillation with rapid ventricular response and outpatient Coreg was increased to 25 mg twice a day with spontaneous conversion to
sinus rhythm. She went back to her lower dose and went back into atrial fibrillation. Coreg was increased again and once again she spontaneously converted to sinus rhythm. She was seen in the office 12/15/2023 and was doing well back in sinus
rhythm. It was recommended she continue on 25 mg twice a day of Coreg. Unfortunately on this dosing she had recurrence of her atrial fibrillation on 12/17/2023 with complaints of shortness of breath, palpitations, tachycardia and chest discomfort
and was recommended to go to the emergency department for evaluation. In emergency department she was noted to be in atrial fibrillation with rapid ventricular response with heart rates in the 100s to 150s. Troponin was negative. Chest x-ray
showed mild interstitial pulmonary edema with small right pleural effusion. Her ICD was interrogated and her device was reprogrammed to VVIR by Dr. Sandhu in the emergency room. She was started on amiodarone 400 mg 3 times daily.
GEN: No distress, awake, Ox3
HEENT: mmm
LUNGS: CTA, no wheezes/rales
CV: Irreg irreg, tachycardic, 2/6 SM
ABD: soft, BS+, NT/ND
EXT: No edema
Plan:
-Presents 12/17/2023 with complaints of palpitations, tachycardia, chest tightness and shortness of breath
Paroxysmal atrial fibrillation with recurrent symptomatic atrial fibrillation.
-ICD was interrogated 12/17/2023 in emergency department. Device was reprogrammed to VVI IR by Dr. YAHIR Sandhu
-Currently in atrial fibrillation with rapid ventricular response.
-Started on amiodarone 400 mg TID evening of 12/17/2023 who remains in AF. If cardioversion is successful we will discharge on amiodarone 200 twice daily for 1 month
-Discussed DC cardioversion and patient is agreeable. No absolute contraindications.
-Uninterrupted Eliquis 5 mg twice daily for over 1 month; Continue Eliquis 5 mg twice a day
-Check TSH
Acute on chronic heart failure with mildly reduced ejection fraction, EF 45% with stable mitral valve repair 11/24/2023 s/p Medtronic biventricular ICD
-She is not chronically on diuretics
-Chest x-ray with interstitial pulmonary edema and small right pleural effusion
-proBNP elevated at 3420
-Will give IV Lasix 20 mg x 1 now; Plan to discharge on Lasix 20 mg once daily
-Plan to restore sinus rhythm
-Optimize goal-directed medical therapy: Continue carvedilol and lisinopril. Add Lasix. Consider outpatient transition from lisinopril to Entresto. Consider outpatient addition of SGLT-2 inhibitor
Hyperlipidemia
-Continue atorvastatin
Possible discharge later today or tomorrow following cardioversion
Original Note:
Consultation
Consultation Request
Date/Time Consultation Requested: 12/17/2023
Date/Time Consultation Performed: 12/18/2023
Requesting Provider: Dr. Russell
Performing Provider: Kalpana Ram PA-C for Dr. Scheiring
Reason for Consultation: Atrial fibrillation/flutter with rapid ventricular response
Medical History
-
History of Present Illness:
Carmen is a 83-year-old female with past medical history significant for mitral valve repair, hypertension, hyperlipidemia, paroxysmal atrial fibrillation on chronic anticoagulation with Eliquis, nonischemic cardiomyopathy, chronic heart failure with
mildly reduced ejection fraction, ventricular tachycardia status post ICD, breast cancer status post chemo and mastectomy and spontaneous subdural hemorrhage status postcraniotomy in 2020 who presented to emergency department 12/17/2023 with
complaints of palpitations, tachycardia, chest tightness and shortness of breath. Patient had bad respiratory/bronchitis infection which started shortly after and was treated mostly with supportive care. She was on antibiotics briefly for
UTI and early November. During this time she developed atrial fibrillation with rapid ventricular response and outpatient Coreg was increased to 25 mg twice a day with spontaneous conversion to sinus rhythm. She went back to her lower dose and went
back into atrial fibrillation. Coreg was increased again and once again she spontaneously converted to sinus rhythm. She was seen in the office 12/15/2023 and was doing well back in sinus rhythm. It was recommended she continue on 25 mg twice a
day of Coreg. Unfortunately on this dosing she had recurrence of her atrial fibrillation on 12/17/2023 with complaints of shortness of breath, palpitations, tachycardia and chest discomfort and was recommended to go to the emergency department for
evaluation. In emergency department she was noted to be in atrial fibrillation with rapid ventricular response with heart rates in the 100s to 150s. Troponin was negative. Chest x-ray showed mild interstitial pulmonary edema with small right
pleural effusion. Her ICD was interrogated and her device was reprogrammed to VVIR by Dr. Sandhu in the emergency room. She was started on amiodarone 400 mg 3 times daily.
At time of this evaluation she is sitting in bed on room air. She continues to have palpitations and tachycardia. When her heart rate is elevated she notices a mild chest heaviness or discomfort. She denies shortness of breath at rest, orthopnea,
PND or edema.
PMH:
Hypertension
Hyperlipidemia
Paroxysmal Atrial fibrillation
Chronic anticoagulation on Eliquis
Cardiomyopathy
Chronic heart failure with reduced ejection fraction
Ventricular tachycardia
Medtronic biventricular ICD
Mitral valve repair 2008
Chronic migraine
History of breast cancer status postchemotherapy and mastectomy
History of spontaneous subdural hemorrhage status post craniotomy 2020
Past Medical History
Past Medical History: Other (See HPI)
Past Surgical History: Cardiac (BIVICD, s/p MV repair) and Other (Left craniotomy, MVR, L mastectomy, cholecystectomy)
Social History
Tobacco: Non-Smoker
Alcohol: Occasional
Drug: None
Personal:
Living: With Family
Employment: Retired (RN)
Family History
Family History: CAD (father) and Cancer (Mother breast CA)
Allergies / Home Medications
Allergy/AdvReac Type Severity Reaction Status Date / Time
nitrofurantoin Allergy facial Verified 12/17/23 16:05
[From Macrobid] flushing
�Medication �Instructions �Recorded �Confirmed �Type
amitriptyline 25 mg tablet 25 mg PO HS Sleep 02/19/09 12/17/23 History
carvedilol 12.5 mg tablet 25 mg PO BID Blood pressure 02/19/09 12/17/23 History
vit C 250 mg-vit E 90 mg-zinc 40 1 cap PO BID Supplement 05/11/17 12/17/23 History
mg-copper 1 [id number]
capsule (PreserVision AREDS-2)
atorvastatin 10 mg tablet 10 mg PO QPM High cholesterol 02/28/21 12/17/23 History
lisinopril 20 mg tablet 20 mg PO DAILY Blood pressure 02/28/21 12/17/23 History
multivitamin with folic acid 400 1 tab PO DAILY Supplement 02/28/21 12/17/23 History
mcg tablet (Tab-A-Juan Carlos)
polyvinyl alcohol-povidone (PF) 1 drops BOTH EYES QIDPRN PRN EYE 02/28/21 12/17/23 History
1.4 %-0.6 % eye drops in a IRRITATION
dropperette (Refresh Classic (PF))
apixaban 5 mg tablet (Eliquis) 5 mg PO BID Blood Clot 11/21/23 12/17/23 History
Prevention/Tx
omega 9-par-qht-fish oil 1,000 mg 2 cap PO DAILY Supplement 11/21/23 12/17/23 History
(120 mg-180 mg) capsule (Fish Oil)
Review of Systems
-
History Source: Patient
All other systems: Negative unless noted
Physical Exam
Vital Signs
Temp Pulse Resp BP Pulse Ox
98.1 F 83 18 127/93 94
12/18/23 07:14 12/18/23 09:25 12/18/23 07:14 12/18/23 09:25 12/18/23 07:14
GEN: No distress, awake, Ox3
HEENT: supple, anicteric, mmm
LUNGS: CTA, no wheezes/rales
CV: Irreg irreg, tachycardic, no murmur, rub or gallop
ABD: soft, BS+, NT/ND
EXT: No edema, clubbing or cyanosis
NEURO: Gross non-focal
SKIN: No rash, warm, dry
Lab Results
12/18/23 04:56
12/18/23 04:56
Troponin I < 0.012 ng/ml 12/17/23 16:24
Impression / Plan
-
Family Physician: Prabhjot Johnson
Corporate Bond Trader: Dr. Elijah Simmons
Impression:
Presented 12/17/2023 with palpitations, tachycardia, chest tightness, shortness of breath
Atrial fibrillation/flutter with rapid ventricular response
Acute on chronic heart failure with mildly reduced ejection fraction
Hypertension
Hyperlipidemia
Paroxysmal Atrial fibrillation
Chronic anticoagulation on Eliquis
Cardiomyopathy
Chronic heart failure with reduced ejection fraction
Ventricular tachycardia
Medtronic biventricular ICD
Mitral valve repair 2008
Chronic migraine
History of breast cancer status postchemotherapy and mastectomy
History of spontaneous subdural hemorrhage status post craniotomy 2020
Echocardiogram 11/24/2023: EF 45% with mildly reduced LV systolic function. Mild concentric LVH. Inferolateral hypokinesis. Status post MV repair with peak/mean gradient 9/4 mmHg. Mildly dilated aortic root, sinus of Valsalva 4.0 cm, ST junction 3.5
cm, ascending ao 3.7 cm. Echo stable when compared to echo from 2018.
Echocardiogram from June 07, 2018 shows normal left ventricular chamber size. There is inferolateral and lateral wall hypokinesis with ejection fraction estimated at 45-50 percent. There is mild biatrial enlargement. There is a peak and mean
gradient of 7 and 3 mmHg across the previously repaired mitral valve with only trace mitral regurgitation. Compared to the echocardiogram from May 2017 the ejection fraction was previously noted to be 50% in its felt that the study is largely
unchanged.
Plan:
-Presents 12/17/2023 with complaints of palpitations, tachycardia, chest tightness and shortness of breath
Paroxysmal atrial fibrillation
-Patient has been having intermittent episodes of paroxysmal atrial fibrillation over the last 2 to 3 weeks following respiratory infection, bronchitis. She is spontaneously converted to sinus rhythm on multiple occasions during this time with
higher dose of beta-andrea. However now continues in atrial fibrillation with rapid ventricular response despite up titration of Coreg.
-ICD was interrogated 12/17/2023 in emergency department. Device was reprogrammed to VVI IR by Dr. YAHIR Sandhu
-Currently in atrial fibrillation with rapid ventricular response.
-Started on amiodarone 400 mg 3 times daily evening of 12/17/2023
-Would hold on cardioversion in hopes that patient will spontaneously convert with initiation of amiodarone. However, if she continues w/ rapid rates then would CV
-Continue Eliquis 5 mg twice a day
Acute on chronic heart failure with mildly reduced ejection fraction, EF 45%
-Chest x-ray with interstitial pulmonary edema and small right pleural effusion
-proBNP pending
-Will give IV Lasix 40 mg x 1 now
-Echocardiogram from 11/24/2023 reviewed, EF 45% with stable mitral valve repair. No reason to repeat.
-Continue carvedilol, lisinopril
Hyperlipidemia
-Continue atorvastatin
HPI 12/18/23:
Carmen is a 83-year-old female with past medical history significant for mitral valve repair, hypertension, hyperlipidemia, paroxysmal atrial fibrillation on chronic anticoagulation with Eliquis, nonischemic cardiomyopathy, chronic heart failure with
mildly reduced ejection fraction, ventricular tachycardia status post ICD, breast cancer status post chemo and mastectomy and spontaneous subdural hemorrhage status postcraniotomy in 2020 who presented to emergency department 12/17/2023 with
complaints of palpitations, tachycardia, chest tightness and shortness of breath. Patient had bad respiratory/bronchitis infection which started shortly after and was treated mostly with supportive care. She was on antibiotics briefly for
UTI and early November. During this time she developed atrial fibrillation with rapid ventricular response and outpatient Coreg was increased to 25 mg twice a day with spontaneous conversion to sinus rhythm. She went back to her lower dose and went
back into atrial fibrillation. Coreg was increased again and once again she spontaneously converted to sinus rhythm. She was seen in the office 12/15/2023 and was doing well back in sinus rhythm. It was recommended she continue on 25 mg twice a
day of Coreg. Unfortunately on this dosing she had recurrence of her atrial fibrillation on 12/17/2023 with complaints of shortness of breath, palpitations, tachycardia and chest discomfort and was recommended to go to the emergency department for
evaluation. In emergency department she was noted to be in atrial fibrillation with rapid ventricular response with heart rates in the 100s to 150s. Troponin was negative. Chest x-ray showed mild interstitial pulmonary edema with small right
pleural effusion. Her ICD was interrogated and her device was reprogrammed to VVIR by Dr. Sandhu in the emergency room. She was started on amiodarone 400 mg 3 times daily.
At time of this evaluation she is sitting in bed on room air. She continues to have palpitations and tachycardia. When her heart rate is elevated she notices a mild chest heaviness or discomfort. She denies shortness of breath at rest, orthopnea,
PND or edema.
[2023-12-18 12:06] LABS: NT-proBNP 3420 pg/ml
[2023-12-18] MEDS: LASIX 20 MG IV (12:10)
--- NOTE | 2023-12-18 13:51 | ITS.CL.CARDI ---
Cement Despatch Operator - Cardioversion
Cardioversion
Procedure Report:
Date of Procedure: 12/18/23
Procedure: Cardioversion
Indication: Symptomatic atrial fibrillation
Performing Physician: Mami Meier DO [facility]
Technique: The patient was brought to the holding area. Signed informed consent was obtained. A time out was called and performed. The patient was anesthetized by the anesthesia service. Anticoagulation status was reviewed and appropriate. R2 pads
were placed anteriorly and posteriorly. A 200J synchronized biphasic shock restored normal sinus rhythm without significant bradycardia. Medtronic ICD interrogated post procedure with credit and collections representative. There were no complications.
Conclusion: Uncomplicated cardioversion from atrial fibrillation to sinus rhythm.
Recommendation: Routine post cardioversion care. Continue manager intermediate anticoagulation.
--- NOTE | 2023-12-18 15:03 | PTCARENOTE ---
Assumed care of pt from CCL post cardioversion. She arrives on unit awake and alert, Ox3, VSS, CM shows NSR 81, POX 96% on RA. She denies any pain or discomfort. For possible D/C later today.
--- NOTE | 2023-12-18 16:10 | CM ---
Reviewed chart. Met with And Mrs. Henson to review discharge plans. She states prior to admission she resides with her spouse in a two story home with one step to enter. She states she has a full flight of steps to get to bedroom/full
bathroom. She states she has a powder room on the first floor. She states prior to admission she was independent with ambulation and adls. She states she does not have any DME in the home. She states she has a prescription plan with [facility] and
uses [facility]. Medical work-up in progress. The discharge plan is to return home with her spouse when medically stable.
--- NOTE | 2023-12-18 16:30 | PTCARENOTE ---
Ambulated with pt around unit. VS remained stable, HR 80's A/V paced, pt denies any pain or discomfort.
--- NOTE | 2023-12-18 20:00 | PTCARENOTE ---
Vpaced. VSS. RA. Denies pain. Requesting all evening medications at 1999. Spouse at bedside. Questions answered. Call wells within reach
[2023-12-18] MEDS: LIPITOR 10 MG PO (20:29)
[2023-12-18] MEDS: PACERONE 200 MG PO (20:29)
[2023-12-18] MEDS: OCUVITE SOFTGEL PO (20:29)
[2023-12-18] MEDS: ELAVIL 25 MG PO (20:30)
[2023-12-19 03:48] VITALS: BP 100/54
--- NOTE | 2023-12-19 07:03 | W.PN.HOSP.TC ---
Today's Communication/Plan
-
discharge
Assessment / Plan
Assessment / Plan
Physical Exam
General: No acute distress, appears comfortable at this time
HEENT: NormoCephalic, Moist mucous membranes and Atraumatic
Respiratory: Clear
Cardiac: S1/S2 and Regular Rhythm; No Murmur or Rub
GI: Soft, Non Tender, Non Distended and Normal Bowel Sounds; No Organomegaly
Musculoskeletal: No Clubbing, No Cyanosis and No Edema
Skin: No Rash
Neuro: AOx3
83F pAfib CAD chemo-induced cardiomyopathy VT s/p ICD MVR HTN HLD Thrombophilia Lt Breast Ca Migraines Subdural Hematoma s/p Craniotomy p/w symptomatic afib underwent successful cardioversion.
# Tachycardia, symptomatic atrial fibrillation
# History of paroxysmal atrial fibrillation
-EKG shows ventricular paced rhythm with PVCs/aberrant complexes
-Troponin negative
-ICD interrogated and adjusted as per cardio
-Cardio eval appreciated successful cardioversion performed 12/17
-Amiodarone started, continue on discharge 200 mg daily as per cardio
-Continue Eliquis
Coronary artery disease
Chemotherapy induced cardiomyopathy with reduced EF
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
-Recent echo with EF of 45%
-Continue Coreg
-lasix diuresis as per cardio lasix 20 mg PO daily on discharge
History of ventricular tachycardia status post ICD
History of mitral regurgitation status post valve repair
Essential hypertension
-Continue lisinopril
Hyperlipidemia
-Continue statin
History of left breast cancer
History of migraines
History of subdural hematoma status postcraniotomy
History of thrombophilia
Anxiety/depression
-Continue amitriptyline
Cholelithiasis
Full code
DVT prophylaxis�Eliquis
Cardiac diet
Per discussion with Cardio, medically stable for discharge home with outpatient follow up recommendations.
discussed with patient, her Justice, Nurse, and Cardiology
I spent a total of 50 minutes with the patient or on the floor. More than 50% of this time involved counseling and coordination of care.
Anticipated Discharge: Today
Subjective/Interval History
-
Date of Service: December 19, 2023
seen and examined at bedside in no acute distress. Reports feeling well, ambulating without issues. Eager to go home.
Objective Data
-
Vital Signs:
Vital Signs
Temp Pulse Resp BP Pulse Ox
97.8 F 68 15 100/54 97
12/19/23 03:52 12/19/23 03:48 12/19/23 03:52 12/19/23 03:48 12/19/23 03:52
I&O
12/18/23 12/19/23 12/20/23
06:59 06:59 06:59
Intake Total 250 / 250
Balance 250 / 250
[2023-12-19 07:28] VITALS: BP 134/86
[2023-12-19] MEDS: THERAGRAN 1 TABLET PO (08:14)
[2023-12-19] MEDS: COREG 25 MG PO (08:14)
[2023-12-19] MEDS: ZESTRIL 20 MG PO (08:14)
[2023-12-19] MEDS: OCUVITE SOFTGEL 1 CAP PO (08:14)
[2023-12-19] MEDS: PACERONE 200 MG PO (08:15)
[2023-12-19] MEDS: ELIQUIS 5 MG PO (08:15)
--- NOTE | 2023-12-19 09:27 | PTCARENOTE ---
Assumed care of pt from night RN. Pt received awake and alert, Ox3. VSS, CM shows 100% v-pacing 70's, POX 95% on RA. She denies any pain or discomfort, wants to go home.
[2023-12-19 11:47] VITALS: BP 137/82
--- NOTE | 2023-12-19 12:55 | W.DCSUMMARY ---
Discharge Summary
Discharge Data
Date of Admission: 12/17/23
Date of Discharge: 12/19/23
-
Pending Results: No
Hospital Course
83F pAfib CAD chemo-induced cardiomyopathy VT s/p ICD MVR HTN HLD Thrombophilia Lt Breast Ca Migraines Subdural Hematoma s/p Craniotomy p/w symptomatic afib cardio performed successful cardioversion 12/17. Tachycardia, symptomatic atrial
fibrillation, history of paroxysmal atrial fibrillation, EKG showed ventricular paced rhythm with PVCs/aberrant complexes, Troponin negative, ICD was interrogated and adjusted as per cardio. Amiodarone was started and, on discharge, dose was
reduced to 200 mg daily as per cardio recommendations. Chemotherapy induced cardiomyopathy with reduced EF, possible Acute on Chronic HFmrEF, recent ECHO with EF of 45%, Coreg was continued. Patient was discharged on PO Lasix 20 mg daily as per
Cardio recommendations. Medically stable, patient was discharged home with outpatient follow up recommendations.
Discharge Plan
-
Patient Disposition: Home (Routine Discharge)
Discharge Diagnosis/Procedures: symptomatic atrial fibrillation underwent successful cardioversion, heart failure with preserved ejection fraction
Condition: Good
Diet: Low Cholesterol
Activity: As tolerated
Driving Restrictions: As prior to admission
Bathing Restrictions: None
Blood Work: Please obtain BMP with primary care provider in 1 week of discharge.
Specialty Instructions: Weigh Daily- Call MD for wt gain/loss 3 lbs overnight/5 lbs in 1 week
Activity Restrictions/Additional Instructions:
Please follow up with primary care provider in 1 week of discharge and keep your appointment with Cardiology.
Amiodarone has been prescribed to prevent recurrence of atrial fibrillation.
Lasix has been prescribed for treatment heart failure.
Please take medications as prescribed/recommended and follow up with primary care provider and/or other healthcare provider involved in your care for refills and/or further adjustment to your medication regimen as necessary.
Referrals:
Prabhjot Johnson I., DO [Family Provider] - in one week
Kalpana Ram PA-C [Specified Professional Personl] - 01/05/24 12:40 pm (You have cardiology follow up with Kalpana Ram PA-C on January 04 at 12:40 pm in the [place]. If you are unable to make this appointment please call [phone] to reschedule)
Prescriptions:
New
amiodarone [Pacerone] 200 mg Tablet
200 mg PO DAILY 30 Days Qty: 30 0RF
furosemide [Lasix] 20 mg tablet
20 mg PO DAILY 30 Days Qty: 30 0RF
Continued
carvedilol 12.5 MG tablet
25 mg PO BID
amitriptyline 25 MG tablet
25 mg PO HS
PreserVision AREDS-2 1 EACH capsule
1 cap PO BID
atorvastatin 10 MG tablet
10 mg PO QPM
multivitamin with folic acid [Tab-A-Juan Carlos] 1 TABLET tablet
1 tab PO DAILY
lisinopril 20 MG tablet
20 mg PO DAILY
Refresh Classic (PF) 10 DROPS dropperette
1 drops BOTH EYES QIDPRN PRN (Reason: EYE IRRITATION)
omega 5-yhk-xdf-fish oil [Fish Oil] 1,000 mg (120 mg-180 mg) Capsule
2 cap PO DAILY
Eliquis 5 mg Tablet
5 mg PO BID
Discharge Orders:
Discharge Patient (As Directed); Ordered 12/19/23
Ordered By: Lacy Aquino
Care Plan Goals
Care Plan Goals:
Problem: Readiness for enhanced knowledge related to diagnosis and treatment plan
Goal: Understand your diagnosis and treatment plan needs, including medications if applicable.
Instructions: Know your diagnosis, underlying causes and treatment plan options, including medications if applicable. Consult with your health care team to learn about your diagnosis and treatment plan, including medications if applicable.
Discharge Date and Time
Discharge Date/Time: 12/19/23 13:48
Print Language: SLOVAK
--- NOTE | 2023-12-19 13:46 | PTCARENOTE ---
All D/C info reviewed with pt, all questions answered. Pt D/C'd home with spouse.
--- NOTE | 2023-12-19 18:27 | W.PN.CARDCBS ---
Today's Communication / Plan
-
Continue uninterrupted Eliquis
Start amiodarone 200 mg once daily
Start Lasix 20 mg once daily
Outpatient cardiac follow-up to be arranged
From a cardiac standpoint okay for discharge home
Impression / Plan
-
Family Physician: Prabhjot Johnson
Compressor Station Operator: Dr. Elijah Simmons
Impression:
Presented 12/17/2023 with palpitations, tachycardia, chest tightness, shortness of breath
Atrial fibrillation/flutter with rapid ventricular response
Acute on chronic heart failure with mildly reduced ejection fraction
Hypertension
Hyperlipidemia
Paroxysmal Atrial fibrillation
Chronic anticoagulation on Eliquis
Cardiomyopathy
Chronic heart failure with reduced ejection fraction
Ventricular tachycardia
[employer] biventricular ICD
Mitral valve repair 2008
Chronic migraine
History of breast cancer status postchemotherapy and mastectomy
History of spontaneous subdural hemorrhage status post craniotomy 2020
Echocardiogram 11/24/2023: EF 45% with mildly reduced LV systolic function. Mild concentric LVH. Inferolateral hypokinesis. Status post MV repair with peak/mean gradient 9/4 mmHg. Mildly dilated aortic root, sinus of Valsalva 4.0 cm, ST junction 3.5
cm, ascending ao 3.7 cm. Echo stable when compared to echo from 2018.
Echocardiogram from June 07, 2018 shows normal left ventricular chamber size. There is inferolateral and lateral wall hypokinesis with ejection fraction estimated at 45-50 percent. There is mild biatrial enlargement. There is a peak and mean
gradient of 7 and 3 mmHg across the previously repaired mitral valve with only trace mitral regurgitation. Compared to the echocardiogram from May 2017 the ejection fraction was previously noted to be 50% in its felt that the study is largely
unchanged.
Plan:
-Presents 12/17/2023 with complaints of palpitations, tachycardia, chest tightness and shortness of breath
Paroxysmal atrial fibrillation
-Patient has been having intermittent episodes of paroxysmal atrial fibrillation over the last 2 to 3 weeks following respiratory infection, bronchitis. She is spontaneously converted to sinus rhythm on multiple occasions during this time with
higher dose of beta-andrae. However now continues in atrial fibrillation with rapid ventricular response despite up titration of Coreg.
-ICD was interrogated 12/17/2023 in emergency department. Device was reprogrammed to VVI IR by Dr. YAHIR Sandhu
-Underwent successful DC cardioversion 12/18/2023 to sinus rhythm. Device reinterrogated by [employer] community health representative
-Will discharge on amiodarone 200 mg once daily
-Continue uninterrupted Eliquis anticoagulation
Acute on chronic heart failure with mildly reduced ejection fraction, EF 45%
-Volume status is improved with IV Lasix and gnosticism of sinus rhythm
-Chest x-ray with interstitial pulmonary edema and small right pleural effusion
-Will discharge on Lasix 20 mg once daily
-Echocardiogram from 11/24/2023 reviewed, EF 45% with stable mitral valve repair. No reason to repeat.
-Continue carvedilol, lisinopril
Hyperlipidemia
-Continue atorvastatin
Stable for discharge home with outpatient cardiac follow-up
HPI 12/18/23:
Carmen is a 83-year-old female with past medical history significant for mitral valve repair, hypertension, hyperlipidemia, paroxysmal atrial fibrillation on chronic anticoagulation with Eliquis, nonischemic cardiomyopathy, chronic heart failure with
mildly reduced ejection fraction, ventricular tachycardia status post ICD, breast cancer status post chemo and mastectomy and spontaneous subdural hemorrhage status postcraniotomy in 2020 who presented to emergency department 12/17/2023 with
complaints of palpitations, tachycardia, chest tightness and shortness of breath. Patient had bad respiratory/bronchitis infection which started shortly after and was treated mostly with supportive care. She was on antibiotics briefly for
UTI and early November. During this time she developed atrial fibrillation with rapid ventricular response and outpatient Coreg was increased to 25 mg twice a day with spontaneous conversion to sinus rhythm. She went back to her lower dose and went
back into atrial fibrillation. Coreg was increased again and once again she spontaneously converted to sinus rhythm. She was seen in the office 12/15/2023 and was doing well back in sinus rhythm. It was recommended she continue on 25 mg twice a
day of Coreg. Unfortunately on this dosing she had recurrence of her atrial fibrillation on 12/17/2023 with complaints of shortness of breath, palpitations, tachycardia and chest discomfort and was recommended to go to the emergency department for
evaluation. In emergency department she was noted to be in atrial fibrillation with rapid ventricular response with heart rates in the 100s to 150s. Troponin was negative. Chest x-ray showed mild interstitial pulmonary edema with small right
pleural effusion. Her ICD was interrogated and her device was reprogrammed to VVIR by Dr. Sandhu in the emergency room. She was started on amiodarone 400 mg 3 times daily.
At time of this evaluation she is sitting in bed on room air. She continues to have palpitations and tachycardia. When her heart rate is elevated she notices a mild chest heaviness or discomfort. She denies shortness of breath at rest, orthopnea,
PND or edema.
Progress Note - Compressor Station Operator
Subjective
Date of Service: December 19, 2023
Patient seen and examined ambulating around room and anxious for discharge. Shortness of breath and edema have resolved. No palpitations or dizziness. No chest pain or pressure.
Objective
Labs:
12/18/23 04:56
12/18/23 04:56
Labs
Hgb 11.9 g/dL (12.0-16.0) L 12/18/23 04:56
Hct 34.6 % (37.0-47.0) L 12/18/23 04:56
Plt Count 343 10^3/uL (130-400) 12/18/23 04:56
Sodium 135 mmol/L (135-145) 12/18/23 04:56
Potassium 4.3 mmol/L (3.5-5.1) 12/18/23 04:56
BUN 16 mg/dl (7-17) 12/18/23 04:56
Creatinine 0.6 mg/dL (0.6-1.0) 12/18/23 04:56
Glucose 92 mg/dl (70-99) 04/19/24 04:56
Troponins
12/17/23
16:24
Troponin I < 0.012
Vital Signs and I&O:
Vital Signs
Temp Pulse Resp BP Pulse Ox
98.0 F 67 18 137/82 98
12/19/23 12:35 12/19/23 13:00 12/19/23 12:35 12/19/23 11:47 12/19/23 12:35
Vital Signs
Temp Pulse Resp BP Pulse Ox
98.0 F 67 18 137/82 98
12/19/23 12:35 12/19/23 13:00 12/19/23 12:35 12/19/23 11:47 12/19/23 12:35
Intake & Output
12/17/23 12/18/23 12/19/23 12/20/23
06:59 06:59 06:59 06:59
Intake Total 250 / 250
Balance 250 / 250
Physical Exam
Physical Exam
General: No acute distress, AAOX3
Neck: Negative JVD
Heart: Regular, positive S1/S2. No murmur. ICD site intact
Lungs: CTA b/l, negative wheezes/rales/rhonchi
Abd: Positive BS, NT/ND, neg rebound/rigidity/guarding
Ext: Negative cyanosis/clubbing/edema
Neuro: nonfocal
== END 2023-12-19 13:48 | disposition home or self-care (01) | DRG 309 ==
LOC: IVU 19:04
PROVIDERS: Emergency Medicine; ADMITTING PHYSICIAN Hospitalist; ATTENDING PHYSICIAN Internal Medicine; EMERGENCY PHYSICIAN Emergency Medicine; FAMILY PHYSICIAN Internal Medicine; OTHER PHYSICIAN Internal Medicine Cardiovascular Disease
PROC: 5A2204Z Restoration of Cardiac Rhythm, Single (ICD-10-PCS; 2023-12-18)
DX: I48.0 Paroxysmal atrial fibrillation (principal); I50.42 Chronic combined systolic (congestive) and diastolic (congestive) heart failure; I25.10 Atherosclerotic heart disease of native coronary artery without angina pectoris; T45.1X5A Adverse effect of antineoplastic and immunosuppressive drugs, initial encounter; I42.7 Cardiomyopathy due to drug and external agent; I11.0 Hypertensive heart disease with heart failure; E78.00 Pure hypercholesterolemia, unspecified; F41.9 Anxiety disorder, unspecified; F32.A Depression, unspecified; K80.20 Calculus of gallbladder without cholecystitis without obstruction; Z79.01 Long term (current) use of anticoagulants
CPT/HCPCS: 71046; 80053; 83880; 84484; 85025; 92960; 93005; 99285

== ENCOUNTER 2024-10-21 19:20 | Inpatient (IN) | payer MEDICARE, OTHER, SELFPAY ==
[2024-10-21 11:43] VITALS: BP 143/97
--- NOTE | 2024-10-21 12:41 | ED TECH ---
unable to draw labs in triage.
[2024-10-21 14:15] VITALS: BP 141/90
--- NOTE | 2024-10-21 15:18 | ED.GENMED ---
History of Present Illness
General
Chief Complaint: Breathing Problem
Source: patient
Exam Limitations: none
Time Seen by Provider: 10/21/24 15:17
Nursing documentation reviewed up to this point in time: agreed with
History of Present Illness
History of Present Illness:
83-year-old female presents emergency room due to difficulty breathing, chest pain and gas. She gets short of breath when she walks.
Past History
Past History
ED Past Medical History: Arrthythmia, Cancer (Breast cancer), HTN, Valvular disease (Mitral regurgitation) and Psychiatric (Anxiety)
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
Social History
Tobacco: Former smoker
Alcohol: Daily (Wine 1-2 glasses)
Drug: None
Personal:
Living: with family
Family History
Family History: Hypertension and CAD
Review of Systems
Review of Systems
Allergies reviewed?: Yes
All Other Systems: Not applicable
Constitutional: Reports no symptoms
EENT: Reports no symptoms
Respiratory: Reports trouble breathing
Cardiac: Reports chest pain and diaphoresis
ABD/GI: Reports no symptoms
: Reports no symptoms
Musculoskeletal: Reports no symptoms
Skin: Reports no symptoms
Neurological: Reports no symptoms
Endocrine: Reports no symptoms
Hematologic/Lymphatic: Reports no symptoms
Psychiatric: Reports no symptoms
Phy Exam
Physical Exam
Physical Exam:
Physical Exam
General: no apparent distress, not acutely ill
Neck: supple. no meningeal signs. normal posterior pharynx
Heart: s1/s2 tachycardia and irregular rhythm, no murmur. equal radial
pulses. Pacemaker left upper chest
HEENT: Pupils equal round reactive to light, EOMI
Lungs: no acute respiratory distress. clear bilaterally
Abdomen: normal bowel sounds. not tender. no CVAT
Neuro: alert and oriented. no focal neurological deficits cranial nerves II through XII intact
Skin: no rash
Psychiatric: well kept. interactive and cooperative
Extremities: no edema. no calf tenderness. negative homans. good distal pulses
Scores
Heart Failure Risk
Heart Failure Risk Score: Yes
History of Stroke or TIA: No
History of intubation for respiratory distress: No
Heart rate on ED arrival >/= 110: Yes
SaO2 <90% on arrival on room air: No
HR >/=110 during 3min walk test (or too ill to perform test): Yes
ECG has acute ischemic changes: No
Urea >/=12mmol/L (BUN 33.6mg/dL): No
Serum CO2>/=35mmol/L: No
Troponin I or T elevated to FL Level (0.4mg/dL): No
NT-proBNP >/=5,000ng/L (5,000pg/ml): No
HF Risk Score: 2
Admission Status: MEDIUM RISK 9.2% Consider observation or discharge to home with homecare & f/u visit to PCP/Mobile Nurse, or SNF for treatment
Course
Orders/Labs/Results
Orders:
Orders
10/21/24 11:50
EKG [Electrocardiogram (*1)] Urgent
Reason for Study: Chest Pain
EKG- Treatment ONCE
10/21/24 15:33
CR Chest Portable - 1 View Urgent
Comment:
Reason For Exam: chest pain, short of breath
Reason Study Needs to be Portable: Patient Unstable
10/21/24 15:34
Interrogate Pacemaker- Treatment ONCE
10/21/24 15:38
Complete Blood Count/With Diff Urgent
Comprehensive Metabolic Panel Urgent
Lipase Urgent
NT-proBNP Urgent
Troponin I Urgent
10/21/24 18:07
Diltiazem 125 mg/125 ml Nss [Cardizem] 125 mg in 125 ml IV NOW
Initial dose in mg/hr, then titrate:: 5
Titrate to keep:: Heart rate 80-100 bpm
Titrate by mg/hr:: 5 mg/hr
Frequency of titrations (minutes):: 15
Maximum dose in mg/hr:: 15
Diltiazem HCl [Cardizem] 5 mg IV NOW STA
Furosemide [Lasix] 40 mg IV NOW STA
10/21/24 18:33
Admit/Transfer Patient As Directed
Co-Sign Provider:
Level of Care: Inpatient admission
Assign to:: Telemetry
Physician / Group: christian
Diagnosis: afib rvr
Reason for Telemetry: Arrhythmia
Date to Stop Telemetry: 10/24/24
Time to Stop Telemetry: 11:00
Reason for Hospitalization: afib rvr
Expected length of stay greater than two midnights?: Yes
ELOS- Estimated Length of Stay in days: 2
I certify the patient meets the requirements for IP care: Yes
Code Status As Directed
Resuscitation Status: Full Code
PRN Pain Medication Management As Directed
May give lesser potent ordered pain med per pt: Yes
preference::
Protocol:: Medication orders for pain may be administered in a
manner that supports deferring to patient preference
when the pt is:
- Requesting an ordered lesser potent pain medication.
Least to most potent pain medications are defined
as: acetaminophen < NSAID < tramadol < opioids
(morphine, oxycodone, hydromorphone).
- Requesting a lesser dose of the same medication IF
ORDERED.
- Requesting a less intrusive route of administration
if both routes are prescribed by the provider (PO <
IV).
10/24/24 11:00
DC Protocol for Telemetry ONCE
Abnormal Lab Results
10/21/24
15:38
MCHC 32.5 L g/dL
(33.0-37.0)
Carbon Dioxide 32 H mmol/L
(22-30)
BUN 18 H mg/dl
(7-17)
AST 41 H U/L
(14-36)
ALT 45 H U/L
(0-35)
10/21/24 15:38
10/21/24 15:38
Vital Signs
Initial and Last Documented VS:
Initial Vital Signs
Temp Pulse Resp BP Pulse Ox
97.9 F 71 18 143/97 99
10/21/24 11:43 10/21/24 11:43 10/21/24 11:43 10/21/24 11:43 10/21/24 11:43
Last Documented Vital Signs
Temp Pulse Resp BP Pulse Ox
97.9 F 94 22 140/87 96
10/21/24 11:43 10/21/24 19:52 10/21/24 19:52 10/21/24 19:52 10/21/24 19:52
*Radiology
Radiology exam reviewed: preliminary read by ED provider
*Pulse Oximetry
Patient hypoxic: no
*EKG
Interpreted by ED Provider?: Yes
EKG Intrepretation Date: 10/21/24
EKG Intrepretation Time: 12:19
Interpretation: abnormal
Comparison EKG: changes noted
Heart Rate: 113
Rate: tachycardiac
Rhythm: atrial flutter
[place]xtell: normal axis
Interval: normal interval
QRS Pattern: normal QRS
Ischemia: non-specific ST changes
*Etl Bi Developer Interpretation
Rate: tachycardiac
Interpretation: abnormal
Heart Rate: 115
Rhythm: atrial flutter
*Critical Care Note
Total Time (30-74mins, 75-104mins- exclusive of procedures): 30
Data Reviewed
Review of Other/Old Records Reveals: Operative Reports (cardioversion 12/18/23)
Source: records
Patient Management
Social determinants of health affecting care: Living situation
Discussion with other providers: Hospitalist
Escalation/DeEscalation of care consider admission/obs:
admit indicated
ED Attending Note
-
Portions of this chart may have been created with voice recognition software.� Occasional wrong word or��sound alike� substitutions may have occurred due to the inherent limitations of voice recognition software.
Discharge Plan
Departure
Patient Disposition: Admit
Date of Disposition: 10/21/24
Time of Disposition: 18:11
Admit to: IVU
Presentation/result/management discussed w/ accepting MD/DO: Hospitalist
Patient with high blood pressure during this ER visit?: Yes
Condition: Fair
Discharge Problem:
Atrial flutter with rapid ventricular response, Acute exacerbation of CHF (congestive heart failure)
Interventions
Interventions:
*Risk Screen - Suicide Last Done: 10/21/24 11:43
*General Assessment Last Done: 10/21/24 11:43
*Neglect/Abuse Screening Last Done: 10/21/24 11:43
*ED COVID-19 Vaccine History Last Done: 10/21/24 11:43
ED- Cardiac Assessment Last Done: 10/21/24 15:31
ED- Pulmonary Assessment Last Done: 10/21/24 15:31
[2024-10-21 15:30] VITALS: BP 148/136
[2024-10-21 15:48] LABS: % Basophils 0.6 % (0-2); % Eosinophils 3.6 % (0-6); % Immature Granulocytes 0.1 % (0-0.5); % Lymphocytes 39.8 % (20.5-51.1); % Monocytes 7.8 % (1.7-9.3); % Neutrophils 48.1 % (42.2-75.2); Absolute Eosinophils 0.3 10^3/uL (0-0.7); Absolute Lymphocytes 2.9 10^3/uL (1.2-3.4); Absolute Monocytes 0.6 10^3/uL (0.1-0.6); Absolute Neutrophils 3.5 10^3/uL (1.4-6.5); Hematocrit 41.8 % (37.0-47.0); Hemoglobin 13.6 g/dL (12.0-16.0); Mean Corp Hgb Conc. 32.5 g/dL (33.0-37.0); Mean Corpuscular Hgb 30.6 pg (27.0-31.0); Mean Corpuscular Volume 94.1 fL (81.0-99.0); Mean Platelet Volume 9.3 fL (7.4-10.4); Nucleated Red Blood Cells % 0 %; Platelet Count 224 10^3/uL (130-400); Red Blood Cell Count 4.44 10^6/uL (4.20-5.40); Red Cell Dist. Width 13.1 % (11.5-14.5); White Blood Cell Count 7.3 10^3/uL (4.8-10.8)
[2024-10-21 15:58] LABS: ALT (SGPT) 45 U/L (0-35); AST (SGOT) 41 U/L (14-36); Alkaline Phosphatase 88 U/L (38-126); Blood Urea Nitrogen 18 mg/dl (7-17); Calcium 9.1 mg/dl (8.4-10.2); Carbon Dioxide 32 mmol/L (22-30); Chloride 102 mmol/L (98-107); Glucose 95 mg/dl (70-99); Lipase 170 U/L (23-300); Potassium 4.5 mmol/L (3.5-5.1); Sodium 138 mmol/L (135-145); Total Bilirubin 0.7 mg/dl (0.2-1.3); eGFR > 60.00
[2024-10-21 16:09] LABS: NT-proBNP 2990 pg/ml; Troponin I < 0.012 ng/ml
[2024-10-21] MEDS: CARDIZEM 5 MG IV (18:29)
[2024-10-21] MEDS: CARDIZEM 125 IV (18:29)
[2024-10-21] MEDS: LASIX 40 MG IV (18:29)
--- NOTE | 2024-10-21 18:38 | HPS.HSE ---
Family Physician
-
Family Physician: Gabriel Kwon
Chief Complaint
-
shortness of breath
History of Present Illness
83-year-old female past medical history of paroxysmal atrial fibrillation status post cardioversion, CAD, chemotherapy-induced cardiomyopathy, VT status post ICD, mitral valve repair, hypertension, hyperlipidemia, thrombophilia, breast cancer,
migraines, subdural hematoma status postcraniotomy presenting with shortness of breath with minimal exertion as well as chest discomfort versus gas starting in the past 3 days. Denies palpitations or dizziness. She had cough last week which is
since resolved. He had some chills this morning. Denies fever. Denies vomiting or diarrhea. Denies lower extremity edema. Denies weight gain. He does not take Lasix.
She sees Dr. Simmons.
She drinks a glass of wine every night. Denies smoking.
Medical History
Past Medical History
Past Medical History: Reports Other (paroxysmal atrial fibrillation status post cardioversion, CAD, chemotherapy-induced cardiomyopathy, VT status post ICD, mitral valve repair, hypertension, hyperlipidemia, thrombophilia, breast cancer, migraines,
subdural hematoma status postcraniotomy)
Past Surgical History: Reports None
Social History
Tobacco: Non-smoker
Alcohol: Daily
Drug: None
Family History
Family History: Not pertinent
Allergies / Home Medications
Allergies reflects when Allergies were last updated in [facility].
Home Medications with original date entered in [facility]
Allergy/Medication List:
Allergies
Allergy/AdvReac Type Severity Reaction Status Date / Time
nitrofurantoin Allergy facial Verified 10/21/24 11:47
[From Macrobid] flushing
Home Medications
amitriptyline 25 mg tablet 25 mg PO HS Sleep 02/19/09
carvedilol 12.5 mg tablet 25 mg PO BID Blood pressure 02/19/09
vit C 250 mg-vit E 90 mg-zinc 40 mg-copper 1 cg-[id number]-ukgfnf capsule (PreserVision AREDS-2) 1 cap PO BID Supplement 05/11/17
atorvastatin 10 mg tablet 10 mg PO QPM High cholesterol 02/28/21
lisinopril 20 mg tablet 20 mg PO DAILY Blood pressure 02/28/21
multivitamin with folic acid 400 mcg tablet (Tab-A-Juan Carlos) 1 tab PO DAILY Supplement 02/28/21
apixaban 5 mg tablet (Eliquis) 5 mg PO BID Blood Clot Prevention/Tx 11/21/23
omega 4-vro-ldq-fish oil 1,000 mg (120 mg-180 mg) capsule (Fish Oil) 2 cap PO DAILY Supplement 11/21/23
ibuprofen 200 mg tablet (Advil) 400 mg PO DAILYPRN PRN mild pain 10/21/24
propylene glycol 0.6 % eye drops (Systane Complete) 1 drp BOTH EYES TIDPRN PRN dryness 10/21/24
Review of Systems
-
Constitutional: Reports No Symptoms
EENT: Reports No Symptoms
Respiratory: Reports See HPI
Cardiac: Reports See HPI
Abdomen/GI: Reports No Symptoms
: Reports No Symptoms
Musculoskeletal: Reports No Symptoms
Skin: Reports No Symptoms
Neurological: Reports No Symptoms
Endocrine: Reports No Symptoms
Hematologic/Lymphatic: Reports No Symptoms
Psych: Reports No Symptoms
Physical Exam
Vital Signs
Vital Signs
Temp Pulse Resp BP Pulse Ox
97.9 F 109 23 148/136 96
10/21/24 11:43 10/21/24 16:00 10/21/24 16:00 10/21/24 15:30 10/21/24 16:00
Physical Exam
General: Well Developed, Well Nourished and No Apparent Distress
HEENT: NormoCephalic, Moist mucous membranes and Atraumatic
Respiratory: Clear
Cardiac: S1/S2 and Regular Rhythm; No Murmur or Rub
GI: Soft, Non Tender, Non Distended and Normal Bowel Sounds; No Organomegaly
Rectal: Deferred by Provider
Musculoskeletal: No Clubbing, No Cyanosis and No Edema
Skin: No Rash
Neuro: Nonfocal/grossly intact
Laboratory Results
-
10/21/24 15:38
10/21/24 15:38
Laboratory Results
Total Bilirubin 0.7 mg/dl (0.2-1.3) 10/21/24 15:38
AST 41 U/L (14-36) H 10/21/24 15:38
ALT 45 U/L (0-35) H 10/21/24 15:38
Alkaline Phosphatase 88 U/L (38-126) 10/21/24 15:38
Troponin I < 0.012 ng/ml 10/21/24 15:38
Lipase 170 U/L (23-300) 10/21/24 15:38
Data Reviewed
-
Lab Data: Labs Reviewed by me
Old Records: Reviewed
Impression/Plan
-
IMPRESSION:
PLAN:
# Atrial fibrillation with RVR
-EKG shows atrial flutter with heart rate up to 113
-Cardizem drip to be started
-Continue Eliquis
-ICD to be interrogated
-Cardiology consult
# Acute CHF exacerbation
-Chest x-ray report pending although showing mild pulmonary edema
-Cardiac BNP of 3000 from 3400 previous
-40 IV Lasix daily
-Continue Coreg
CAD
History of chemotherapy induced cardiomyopathy with reduced EF
History of VT status post ICD
History of mitral regurgitation status post mitral valve repair
Essential hypertension
-Continue lisinopril
Hyperlipidemia
-Continue statin
History of thrombophilia
History of left breast cancer
History of migraines
-Continue amitriptyline
History of subdural hematoma status post craniotomy
Anxiety/depression
Full code
DVT prophylaxis�Eliquis
Cardiac diet
[2024-10-21 19:52] VITALS: BP 140/87
[2024-10-21 20:43] VITALS: BMI 23.5
--- NOTE | 2024-10-21 20:53 | PTCARENOTE ---
Pt received from ED to [facility]. Pt oriented to room and call wells.
[2024-10-21 21:03] VITALS: BP 159/87
[2024-10-21] MEDS: ELAVIL 25 MG PO (21:12)
[2024-10-21] MEDS: COREG 25 MG PO (21:12)
[2024-10-21] MEDS: OCUVITE SOFTGEL 1 CAP PO (21:12)
[2024-10-21] MEDS: ELIQUIS 5 MG PO (21:12)
[2024-10-22] VITALS (7 sets, daily range): BP systolic 105–146; BP diastolic 66–85; BMI 23.4
[2024-10-22 09:21] LABS: % Basophils 0.8 % (0-2); % Eosinophils 3.3 % (0-6); % Immature Granulocytes 0.2 % (0-0.5); % Lymphocytes 40.1 % (20.5-51.1); % Monocytes 10.1 % (1.7-9.3); % Neutrophils 45.5 % (42.2-75.2); Absolute Basophils 0.1 10^3/uL (0-0.2); Absolute Eosinophils 0.2 10^3/uL (0-0.7); Absolute Lymphocytes 2.6 10^3/uL (1.2-3.4); Absolute Monocytes 0.7 10^3/uL (0.1-0.6); Hematocrit 40.1 % (37.0-47.0); Hemoglobin 13.3 g/dL (12.0-16.0); Mean Corp Hgb Conc. 33.2 g/dL (33.0-37.0); Mean Corpuscular Hgb 31.4 pg (27.0-31.0); Mean Corpuscular Volume 94.6 fL (81.0-99.0); Nucleated Red Blood Cells % 0 %; Platelet Count 220 10^3/uL (130-400); Red Blood Cell Count 4.24 10^6/uL (4.20-5.40); Red Cell Dist. Width 13.3 % (11.5-14.5); White Blood Cell Count 6.5 10^3/uL (4.8-10.8)
[2024-10-22] MEDS: ZESTRIL 20 MG PO (09:25)
[2024-10-22] MEDS: COREG 25 MG PO ×2 (09:26→20:00)
[2024-10-22] MEDS: THERAGRAN 1 TABLET PO (09:26)
[2024-10-22] MEDS: ELIQUIS 5 MG PO ×2 (09:26→20:00)
[2024-10-22] MEDS: OCUVITE SOFTGEL 1 CAP PO ×2 (09:27→20:00)
--- NOTE | 2024-10-22 09:44 | W.PN.HOSP.TC ---
Today's Communication/Plan
-
Feels better. has requested to see a ophthalmic pathologist.
Assessment / Plan
Assessment / Plan
83-year-old woman with past medical history of:
paroxysmal atrial fibrillation status post cardioversion,
CAD,
chemotherapy-induced cardiomyopathy,
VT status post ICD,
mitral valve repair,
hypertension,
hyperlipidemia,
thrombophilia
Comes in with shortness of breath with minimal exertion as well as chest discomfort starting in the past 3 days. Found to be in afib with RVR. She denied lower extremity edema, weight gain and she does not take Lasix. She sees Dr. Simmons. She
requests to see a ophthalmic pathologist.
1. Atrial fibrillation with RVR - rate now controlled on a cardizem gtt. pulse 82. BP 114/76, -EKG shows atrial flutter with heart rate up to 113
-Continue Cardizem drip
-Continue Eliquis
-ICD to be interrogated
-Cardiology consulted
Please advise on transitioning off the cardizem gtt
2. Probable Acute CHF exacerbation, from rapid rate. -Chest x-ray report pending although showing mild pulmonary edema, -Cardiac BNP of 3000 from 3400 previous.
-40 IV Lasix daily
-Continue Coreg
3. CAD, troponin neg, no symptoms
Monitor for symptoms
4. Other important medical history to keep in mind:
History of chemotherapy induced cardiomyopathy with reduced EF
History of VT status post ICD
History of mitral regurgitation status post mitral valve repair
Essential hypertension
-Continue lisinopril
Hyperlipidemia
-Continue statin
History of thrombophilia
History of left breast cancer
History of migraines
-Continue amitriptyline
History of subdural hematoma status post craniotomy
Anxiety/depression
Full code
DVT prophylaxis�Eliquis
Cardiac diet
Anticipated Discharge: 24 - 48 hours
Subjective/Interval History
-
Date of Service: October 22, 2024
Feels much better.
Objective Data
-
Labs:
Laboratory Results
10/22/24
07:54
WBC 6.5
Hgb 13.3
Hct 40.1
Plt Count 220
Sodium Pending
Potassium Pending
Chloride Pending
Carbon Dioxide Pending
BUN Pending
Creatinine Pending
Glucose Pending
Calcium Pending
Total Bilirubin Pending
AST Pending
ALT Pending
Alkaline Phosphatase Pending
Vital Signs:
Vital Signs
Temp Pulse Resp BP Pulse Ox
97.5 F 82 16 114/76 95
10/22/24 07:35 10/22/24 07:35 10/22/24 07:35 10/22/24 07:35 10/22/24 07:35
I&O
10/21/24 10/22/24 10/23/24
06:59 06:59 06:59
Intake Total 240 / 240
Balance 240 / 240
Review of Systems
-
History Source: Patient
All other systems: Reviewed and negative
Constitutional: Reports No Symptoms
Physical Exam
-
General: Well Developed, Well Nourished, No Apparent Distress, Comfortable and Conversant
HEENT: Normocephalic, Atraumatic, Moist Mucous Membranes, Nose Appears Normal and Ears Appear Normal
Respiratory: Clear to Auscultation and Decreased Breath Sounds
Cardiac: S1/S2 and Irregular Rhythm
GI: Soft, Nontender and Nondistended
Musculoskeletal: No Clubbing, No Cyanosis and No Edema
Skin: Warm and Dry; Negative Rash
Neuro: Awake, Alert, Oriented and AO x 3
Psych: Calm
Data Reviewed
-
Labs: Labs Reviewed by me
[2024-10-22] MEDS: LASIX 40 MG IV (09:48)
[2024-10-22 10:04] LABS: ALT (SGPT) 35 U/L (0-35); AST (SGOT) 31 U/L (14-36); Albumin 3.5 g/dl (3.5-5.0); Alkaline Phosphatase 79 U/L (38-126); Blood Urea Nitrogen 19 mg/dl (7-17); Calcium 8.7 mg/dl (8.4-10.2); Carbon Dioxide 30 mmol/L (22-30); Chloride 102 mmol/L (98-107); Estimated Creatinine Clearance 69 ml/min; Glucose 87 mg/dl (70-99); Sodium 137 mmol/L (135-145); Total Bilirubin 0.8 mg/dl (0.2-1.3); eGFR > 60.00
--- NOTE | 2024-10-22 13:17 | CON.CAR ---
Addendum entered and electronically signed by Rad Brown DO 10/22/24 17:42:
I saw and examined the patient.
The Gumming Machine Operator's note was reviewed and I agree with the note.
Comment:
GENERAL: no acute distress
EYE: sclera anicteric
NECK: Supple, no JVD, no carotid bruit appreciated
ENT: normal nose, moist mucosal membranes
CARDIAC: Irregularly irregular, +S1/S2, no murmur, rubs, or gallops; left CIED site well-healed
CHEST/PULMONARY: Normal effort, clear breath sounds
ABDOMEN: Soft, without focal tenderness; mild distention
NEUROLOGICAL: Alert and oriented x3
SKIN: Warm and dry, no rash; trace lower extremity edema
PSYCH: Normal and appropriate interaction.
Telemetry demonstrates atrial fibrillation
EKG atrial flutter variable AV block with PVCs versus apparently conducted beats
A/P as below
Continue IV diuresis with Lasix 40 mg daily
Add Aldactone 25 mg daily, monitor renal function, electrolytes, potassium
Consider SGLT2, appreciate input by case management regarding cost
Continue anticoagulation with Eliquis 5 mg twice daily for stroke risk reduction
Strict intake and output, daily weights
Wean Cardizem drip as tolerated; if remains in AF when euvolemic, consider cardioversion for jain of sinus rhythm
Original Note:
Consultation
Consultation Request
Date/Time Consultation Requested: 10/22/2024
Date/Time Consultation Performed: 10/22/2024
Requesting Provider: Dr. Dumas
Performing Provider: Kalpana Ram PA-C for Dr. Ramon
Reason for Consultation: Atrial fibrillation w/ RVR, heart failure
Medical History
-
History of Present Illness:
Carmen is a 83-year-old female with past medical history significant for mitral valve repair, hypertension, hyperlipidemia, paroxysmal atrial fibrillation on chronic anticoagulation with Eliquis, nonischemic cardiomyopathy, chronic heart failure with
mildly reduced ejection fraction, ventricular tachycardia status post ICD, breast cancer status post chemo and mastectomy and spontaneous subdural hemorrhage status post craniotomy in 2020 who presented to emergency department 10/21/2024 with
complaints of shortness of breath and intermittent chest discomfort for several days. She also noted a cough that resolved last week and the morning of presentation noted some off-and-on chills but denied fever. Patient was last seen in cardiology
office in May 2024 and was noted to have increased A-fib burden as patient had discontinued amiodarone due to side effects. She was not interested in resuming amiodarone at that time. She also admitted to self discontinuing Lasix.
In emergency department she was noted to be in atrial fibrillation/flutter with rapid ventricular response with heart rates in the 100s to 150s. Troponin was negative. Chest x-ray pending although preliminary result appears to show mild pulmonary
edema. proBNP elevated at 2990. Patient was given 40 mg IV Lasix in emergency department. She was also given IV Cardizem bolus followed by IV Cardizem drip.
PMH:
Hypertension
Hyperlipidemia
Paroxysmal Atrial fibrillation
Chronic anticoagulation on Eliquis
Nonischemic cardiomyopathy
Chronic heart failure with reduced ejection fraction
Ventricular tachycardia
Medtronic biventricular ICD
Mitral valve repair 2008
Chronic migraine
History of breast cancer status postchemotherapy and mastectomy
History of spontaneous subdural hemorrhage status post craniotomy 2020
Past Medical History
Past Medical History: Other (See HPI)
Past Surgical History: Cardiac (BIVICD, s/p MV repair) and Other (Left craniotomy, MVR, L mastectomy, cholecystectomy)
Social History
Tobacco: Non-Smoker
Alcohol: Occasional
Drug: None
Personal:
Living: With Family
Employment: Retired (RN)
Family History
Family History: CAD (father) and Cancer (Mother breast CA)
Allergies / Home Medications
Allergy/AdvReac Type Severity Reaction Status Date / Time
nitrofurantoin Allergy facial Verified 10/21/24 11:47
[From Macrobid] flushing
�Medication �Instructions �Recorded �Confirmed �Type
amitriptyline 25 mg tablet 25 mg PO HS Sleep 02/19/09 10/21/24 History
carvedilol 12.5 mg tablet 25 mg PO BID Blood pressure 02/19/09 10/21/24 History
vit C 250 mg-vit E 90 mg-zinc 40 1 cap PO BID Supplement 05/11/17 10/21/24 History
mg-copper 1 hs-avioxu-hluvps
capsule (PreserVision AREDS-2)
atorvastatin 10 mg tablet 10 mg PO QPM High cholesterol 02/28/21 10/21/24 History
lisinopril 20 mg tablet 20 mg PO DAILY Blood pressure 02/28/21 10/21/24 History
multivitamin with folic acid 400 1 tab PO DAILY Supplement 02/28/21 10/21/24 History
mcg tablet (Tab-A-Juan Carlos)
apixaban 5 mg tablet (Eliquis) 5 mg PO BID Blood Clot 11/21/23 10/21/24 History
Prevention/Tx
omega 1-rev-dfl-fish oil 1,000 mg 2 cap PO DAILY Supplement 11/21/23 10/21/24 History
(120 mg-180 mg) capsule (Fish Oil)
ibuprofen 200 mg tablet (Advil) 400 mg PO DAILYPRN PRN mild pain 10/21/24 10/21/24 History
propylene glycol 0.6 % eye drops 1 drp BOTH EYES TIDPRN PRN dryness 10/21/24 10/21/24 History
(Systane Complete)
Review of Systems
-
History Source: Patient
All other systems: Negative unless noted
Physical Exam
Vital Signs
Temp Pulse Resp BP Pulse Ox
97.5 F 86 16 120/69 96
10/22/24 11:26 10/22/24 11:26 10/22/24 11:26 10/22/24 11:26 10/22/24 11:26
Lab Results
10/22/24 07:54
10/22/24 07:54
Troponin I < 0.012 ng/ml 10/21/24 15:38
Zil-Q-Nmofhobhjse Pept 2990 pg/ml 10/21/24 15:38
Impression / Plan
-
Family Physician: Prabhjot Johnson
Manager Logistic: Dr. Elijah Simmons
Impression:
Presented 10/21/2024 with palpitations, chest tightness, shortness of breath
Atrial fibrillation/flutter with rapid ventricular response
Acute on chronic heart failure with mildly reduced ejection fraction, proBNP
Hypertension
Hyperlipidemia
Paroxysmal Atrial fibrillation
Chronic anticoagulation on Eliquis
Cardiomyopathy
Chronic heart failure with reduced ejection fraction
Ventricular tachycardia
Medtronic biventricular ICD
Mitral valve repair 2008
Chronic migraine
History of breast cancer status postchemotherapy and mastectomy
History of spontaneous subdural hemorrhage status post craniotomy 2020
Echocardiogram 11/24/2023: EF 45% with mildly reduced LV systolic function. Mild concentric LVH. Inferolateral hypokinesis. Status post MV repair with peak/mean gradient 9/4 mmHg. Mildly dilated aortic root, sinus of Valsalva 4.0 cm, ST junction 3.5
cm, ascending ao 3.7 cm. Echo stable when compared to echo from 2018.
Echocardiogram from June 07, 2018 shows normal left ventricular chamber size. There is inferolateral and lateral wall hypokinesis with ejection fraction estimated at 45-50 percent. There is mild biatrial enlargement. There is a peak and mean
gradient of 7 and 3 mmHg across the previously repaired mitral valve with only trace mitral regurgitation. Compared to the echocardiogram from May 2017 the ejection fraction was previously noted to be 50% in its felt that the study is largely
unchanged.
Plan:
-Presents 10/21/2024 with progressively worsening shortness of breath, palpitations and chest pressure discomfort
Paroxysmal atrial flutter
-Longstanding history of paroxysmal atrial fibrillation/flutter. Was last seen in cardiology office in May 2024 with increased A-fib burden of 9% on ICD interrogation. Patient refused initiation of amiodarone and was not interested in PVI at
that time.
-Now back in paroxysmal atrial flutters/fibrillation. Heart rate seems to be improved with IV diltiazem drip.
-Hopefully patient will convert to sinus rhythm on IV diltiazem drip. If not could consider cardioversion once patient has undergone diuresis
-Continue uninterrupted Eliquis anticoagulation
-Ideally would like to initiate antiarrhythmic drug however patient has been very resistant in past. Also discussed option of ablation which patient has declined in past.
-Discussed most likely atrial fibrillation could be exacerbating her heart failure. Ideally would be better back in sinus rhythm.
-Interrogate ICD to assess overall A-fib burden and exclude ventricular arrhythmias
Acute on chronic heart failure with mildly reduced ejection fraction, EF 45%
-proBNP elevated at 2990 and evidence of interstitial pulmonary edema on chest x-ray.
-Ongoing IV diuresis with Lasix 40 mg daily. Of note patient had self discontinued Lasix as outpatient in the fall 2023.
-Echocardiogram from 11/24/2023 reviewed, EF 45% with stable mitral valve repair. Would consider repeating a patient here on Thursday
-Continue GDMT with carvedilol, lisinopril
-Could consider addition of Aldactone and/or SGLT2 inhibitor. Patient has been very resistant in starting new medications in outpatient setting.
-Keep K greater than 3, magnesium greater than 2
-Monitor renal function and electrolytes with ongoing diuresis
HPI 10/22/2024:
Carmen is a 83-year-old female with past medical history significant for mitral valve repair, hypertension, hyperlipidemia, paroxysmal atrial fibrillation on chronic anticoagulation with Eliquis, nonischemic cardiomyopathy, chronic heart failure with
mildly reduced ejection fraction, ventricular tachycardia status post ICD, breast cancer status post chemo and mastectomy and spontaneous subdural hemorrhage status post craniotomy in 2020 who presented to emergency department 10/21/2024 with
complaints of shortness of breath and intermittent chest discomfort for several days. She also noted a cough that resolved last week and the morning of presentation noted some off-and-on chills but denied fever. Patient was last seen in cardiology
office in May 2024 and was noted to have increased A-fib burden as patient had discontinued amiodarone due to side effects. She was not interested in resuming amiodarone at that time. She also admitted to self discontinuing Lasix.
In emergency department she was noted to be in atrial fibrillation/flutter with rapid ventricular response with heart rates in the 100s to 150s. Troponin was negative. Chest x-ray pending although preliminary result appears to show mild pulmonary
edema. proBNP elevated at 2990. Patient was given 40 mg IV Lasix in emergency department. She was also given IV Cardizem bolus followed by IV Cardizem drip.
Data Reviewed
-
EKG: Report Reviewed by me, Discussed with Physician and Discussed with Patient
Radiology: Report Reviewed by me, Discussed with Physician and Discussed with Patient
Labs: Labs Reviewed by me, Discussed with Physician and Discussed with Patient
Old Records: Reviewed
[2024-10-22] MEDS: LIPITOR 10 MG PO (17:24)
[2024-10-22] MEDS: CARDIZEM 125 IV (17:56)
[2024-10-22] MEDS: ELAVIL 25 MG PO (21:08)
--- NOTE | 2024-10-22 21:30 | PTCARENOTE ---
Pt had 11 beat run of VT while reading in bed. Pt offers no c/o. VSS. [facility] [employer] made aware. No new orders received.
[2024-10-23 03:10] VITALS: BP 103/60
[2024-10-23 06:00] VITALS: BMI 23.4
[2024-10-23 06:53] LABS: Hematocrit 37.4 % (37.0-47.0); Hemoglobin 12.7 g/dL (12.0-16.0); Mean Corpuscular Hgb 31.4 pg (27.0-31.0); Mean Corpuscular Volume 92.3 fL (81.0-99.0); Mean Platelet Volume 9.9 fL (7.4-10.4); Platelet Count 223 10^3/uL (130-400); Red Blood Cell Count 4.05 10^6/uL (4.20-5.40); Red Cell Dist. Width 13.2 % (11.5-14.5); White Blood Cell Count 6.8 10^3/uL (4.8-10.8)
[2024-10-23 07:11] LABS: Blood Urea Nitrogen 25 mg/dl (7-17); Calcium 8.7 mg/dl (8.4-10.2); Carbon Dioxide 31 mmol/L (22-30); Chloride 99 mmol/L (98-107); Estimated Creatinine Clearance 59 ml/min; Glucose 94 mg/dl (70-99); Potassium 3.9 mmol/L (3.5-5.1); Sodium 137 mmol/L (135-145); eGFR > 60.00
[2024-10-23 07:57] VITALS: BP 106/67
[2024-10-23] MEDS: OCUVITE SOFTGEL 1 CAP PO ×2 (08:46→20:50)
[2024-10-23] MEDS: THERAGRAN 1 TABLET PO (08:46)
[2024-10-23] MEDS: COREG 25 MG PO ×2 (08:46→20:50)
[2024-10-23] MEDS: ALDACTONE 25 MG PO (08:46)
[2024-10-23] MEDS: ELIQUIS 5 MG PO ×2 (08:46→20:51)
[2024-10-23] MEDS: LASIX 40 MG IV (08:47)
[2024-10-23] MEDS: ZESTRIL 20 MG PO (08:47)
--- NOTE | 2024-10-23 09:37 | CM ---
Initial assessment completed
Signed IMM on chart 10/21/2024
Pharmacy verified: [facility] @ [address] [facility]
Patient lives with @ [facility]; 2nd floor apartment; elevator access
PLOF; reported she is independent with ambulation, steps, and ADL; drives
No history of SNF or Home Health utilization
will transport home
Plan: Discharge to home when medically stable; patient states she will have no needs
--- NOTE | 2024-10-23 11:18 | W.PN.HOSP.TC ---
Today's Communication/Plan
-
Continue with Lasix, Aldactone. Wean off Cardizem drip
Assessment / Plan
Assessment / Plan
Physical exam:
GENERAL: no acute distress
HEENT: no deformity, normal nose, moist mucosal membranes
Heart: Irregularly irregular, +S1/S2, mild systolic murmur.
Lungs: Normal effort, clear breath sounds
ABDOMEN: Soft, without focal tenderness; no distention
: No hematuria.
NEUROLOGICAL: Alert and oriented x3, she followed commands.
SKIN: Warm and dry, no rash; trace lower extremity edema
PSYCH: Normal and appropriate interaction
.
83-year-old female presented with shortness of breath and intermittent chest discomfort
# Paroxysmal atrial fibrillation with RVR - A flutter
Rate now controlled on a Cardizem gtt. pulse 82. BP 114/76, -EKG shows atrial flutter with heart rate up to 113
Denies sob, palpitation, no sob, no hypoxia
Still in a fib, controlled rate
On IV Cardizem drip
On Coreg
Continue Eliquis. [id number] around 7 for age, sex, CHF, Stroke, HTN.
Agree with cardioversion if needed.
Appreciate cardiology help.
# Acute on chronic HFrEF
c/w Lasix
No sob, feels better
No hypoxia
Added Aldactone
Weight lost 1-2 Kg.
# CAD, troponin neg, no symptoms
#History of ventricular tachycardia status post ICD
#History of mitral regurgitation status post valve repair
#Essential hypertension
-Continue lisinopril, Coreg, Aldactone, Lasix
#Hyperlipidemia
-Continue statin
#History of left breast cancer
#History of migraines
#History of subdural hematoma status postcraniotomy
#History of thrombophilia
#Anxiety/depression
Mood is cooperative
-Continue amitriptyline
Total time spent to see the patient on the floor, examine the patient, review data and lab results, discuss treatment plan with patient, nursing staff around 55 minutes
Anticipated Discharge: 24 - 48 hours
Subjective/Interval History
-
Date of Service: October 23, 2024
No chest pain
No palpitation
No fever
No SOB
Objective Data
-
Labs:
Laboratory Results
10/23/24
05:47
WBC 6.8
Hgb 12.7
Hct 37.4
Plt Count 223
Sodium 137
Potassium 3.9
Chloride 99
Carbon Dioxide 31 H
BUN 25 H
Creatinine 0.7
Glucose 94
Calcium 8.7
Vital Signs:
Vital Signs
Temp Pulse Resp BP Pulse Ox
97.8 F 67 16 106/67 99
10/23/24 07:57 10/23/24 07:57 10/23/24 07:57 10/23/24 07:57 10/23/24 07:57
I&O
10/22/24 10/23/24 10/24/24
06:59 06:59 06:59
Intake Total 240 / 240 1260 / 1260
Balance 240 / 240 1260 / 1260
[2024-10-23 12:00] VITALS: BP 138/81
--- NOTE | 2024-10-23 12:59 | W.PN.CARDCBS ---
Today's Communication / Plan
-
Continue IV diuresis, strict intake and output, daily weights
Tolerating Aldactone, monitor renal function
Stop IV diltiazem, monitor off diltiazem on oral carvedilol
Impression / Plan
-
Family Physician: Prabhjot Johnson
Senior Grant Writer: Dr. Elijah Simmons
Impression:
Presented 10/21/2024 with palpitations, chest tightness, shortness of breath
Atrial fibrillation/flutter with rapid ventricular response
Acute on chronic heart failure with mildly reduced ejection fraction, proBNP
Hypertension
Hyperlipidemia
Paroxysmal Atrial fibrillation
Chronic anticoagulation on Eliquis
Cardiomyopathy
Chronic heart failure with reduced ejection fraction
Ventricular tachycardia
Medtronic biventricular ICD
Mitral valve repair 2008
Chronic migraine
History of breast cancer status postchemotherapy and mastectomy
History of spontaneous subdural hemorrhage status post craniotomy 2020
Echocardiogram 11/24/2023: EF 45% with mildly reduced LV systolic function. Mild concentric LVH. Inferolateral hypokinesis. Status post MV repair with peak/mean gradient 9/4 mmHg. Mildly dilated aortic root, sinus of Valsalva 4.0 cm, ST junction 3.5
cm, ascending ao 3.7 cm. Echo stable when compared to echo from 2018.
Echocardiogram from June 07, 2018 shows normal left ventricular chamber size. There is inferolateral and lateral wall hypokinesis with ejection fraction estimated at 45-50 percent. There is mild biatrial enlargement. There is a peak and mean
gradient of 7 and 3 mmHg across the previously repaired mitral valve with only trace mitral regurgitation. Compared to the echocardiogram from May 2017 the ejection fraction was previously noted to be 50% in its felt that the study is largely
unchanged.
Plan:
-Presents 10/21/2024 with progressively worsening shortness of breath, palpitations and chest pressure discomfort
Paroxysmal atrial flutter
-Longstanding history of paroxysmal atrial fibrillation/flutter. Was last seen in cardiology office in May 2024 with increased A-fib burden of 9% on ICD interrogation. Patient refused initiation of amiodarone and was not interested in PVI at
that time.
-Now back in paroxysmal atrial flutters/fibrillation. Heart rate seems to be improved with IV diltiazem drip; heart rate improved with oral carvedilol and diuresis; discontinue IV diltiazem and monitor
-If patient remains in atrial arrhythmia, may require cardioversion once patient has undergone diuresis
-Continue uninterrupted Eliquis anticoagulation
-Ideally would like to initiate antiarrhythmic drug however patient has been very resistant in past. Also discussed option of ablation which patient has declined in past.
-Discussed most likely atrial fibrillation could be exacerbating her heart failure. Ideally would be better back in sinus rhythm.
-Interrogate ICD to assess overall A-fib burden and exclude ventricular arrhythmias
Acute on chronic heart failure with mildly reduced ejection fraction, EF 45%, improving
-proBNP elevated at 2990 and evidence of interstitial pulmonary edema on chest x-ray.
-Ongoing IV diuresis with Lasix 40 mg daily. Of note patient had self discontinued Lasix as outpatient in the fall 2023.
-Echocardiogram from 11/24/2023 reviewed, EF 45% with stable mitral valve repair. Would consider repeating a patient here on Thursday
-Continue GDMT with carvedilol, lisinopril
-Started on Aldactone 25 mg daily, tolerating well. Consider addition of SGLT2, appreciate input by case management for cost
-Keep K greater than 3, magnesium greater than 2
-Monitor renal function and electrolytes with ongoing diuresis
HPI 10/22/2024:
Carmen is a 83-year-old female with past medical history significant for mitral valve repair, hypertension, hyperlipidemia, paroxysmal atrial fibrillation on chronic anticoagulation with Eliquis, nonischemic cardiomyopathy, chronic heart failure with
mildly reduced ejection fraction, ventricular tachycardia status post ICD, breast cancer status post chemo and mastectomy and spontaneous subdural hemorrhage status post craniotomy in 2020 who presented to emergency department 10/21/2024 with
complaints of shortness of breath and intermittent chest discomfort for several days. She also noted a cough that resolved last week and the morning of presentation noted some off-and-on chills but denied fever. Patient was last seen in cardiology
office in May 2024 and was noted to have increased A-fib burden as patient had discontinued amiodarone due to side effects. She was not interested in resuming amiodarone at that time. She also admitted to self discontinuing Lasix.
In emergency department she was noted to be in atrial fibrillation/flutter with rapid ventricular response with heart rates in the 100s to 150s. Troponin was negative. Chest x-ray pending although preliminary result appears to show mild pulmonary
edema. proBNP elevated at 2990. Patient was given 40 mg IV Lasix in emergency department. She was also given IV Cardizem bolus followed by IV Cardizem drip.
Progress Note - Senior Grant Writer
Subjective
Date of Service: October 23, 2024
Patient seen and examined. No acute events overnight. Patient resting comfortably in chair. Patient has improvement in breathing and decreased weight. Notes mild abdominal distention but overall improved. Denies any chest pain, palpitations,
weakness. Telemetry demonstrates AF, V paced.
Objective
Labs:
10/23/24 05:47
10/23/24 05:47
Labs
Hgb 12.7 g/dL (12.0-16.0) 10/23/24 05:47
Hct 37.4 % (37.0-47.0) 10/23/24 05:47
Plt Count 223 10^3/uL (130-400) 10/23/24 05:47
Sodium 137 mmol/L (135-145) 10/23/24 05:47
Potassium 3.9 mmol/L (3.5-5.1) 10/23/24 05:47
BUN 25 mg/dl (7-17) H 10/23/24 05:47
Creatinine 0.7 mg/dL (0.6-1.0) 10/23/24 05:47
Glucose 94 mg/dl (70-99) 10/23/24 05:47
Troponins
10/21/24
15:38
Troponin I < 0.012
Vital Signs and I&O:
Vital Signs
Temp Pulse Resp BP Pulse Ox
97.3 F 75 18 138/81 95
10/23/24 12:00 10/23/24 12:00 10/23/24 12:00 10/23/24 12:00 10/23/24 12:00
Vital Signs
Temp Pulse Resp BP Pulse Ox
97.3 F 75 18 138/81 95
10/23/24 12:00 10/23/24 12:00 10/23/24 12:00 10/23/24 12:00 10/23/24 12:00
Intake & Output
10/21/24 10/22/24 10/23/24 10/24/24
06:59 06:59 06:59 06:59
Intake Total 240 / 240 1260 / 1260
Balance 240 / 240 1260 / 1260
Physical Exam
Physical Exam
General: No acute distress, AAOX3
Neck: Negative JVD
Heart: Regular, positive S1/S2. No murmur. ICD site intact
Lungs: CTA b/l, negative wheezes/rales/rhonchi
Abd: Positive BS, NT/ND, neg rebound/rigidity/guarding
Ext: Negative cyanosis/clubbing/edema
Neuro: nonfocal
[2024-10-23 16:00] VITALS: BP 106/68
[2024-10-23] MEDS: LIPITOR 10 MG PO (16:44)
[2024-10-23 19:26] VITALS: BP 125/78
[2024-10-23] MEDS: ELAVIL 25 MG PO (22:23)
[2024-10-23 23:47] VITALS: BP 115/61
[2024-10-24 02:57] VITALS: BP 114/63
[2024-10-24 05:32] VITALS: BMI 23.6
[2024-10-24 07:29] VITALS: BP 103/61
[2024-10-24] MEDS: ALDACTONE 25 MG PO (08:13)
[2024-10-24] MEDS: LASIX 40 MG IV (08:14)
[2024-10-24] MEDS: ZESTRIL PO (08:14)
[2024-10-24] MEDS: COREG 25 MG PO (08:14)
[2024-10-24] MEDS: ELIQUIS 5 MG PO (08:14)
[2024-10-24] MEDS: OCUVITE SOFTGEL 1 CAP PO (08:14)
[2024-10-24] MEDS: THERAGRAN 1 TABLET PO (08:14)
[2024-10-24 08:17] LABS: Hematocrit 38.2 % (37.0-47.0); Hemoglobin 12.8 g/dL (12.0-16.0); Mean Corp Hgb Conc. 33.5 g/dL (33.0-37.0); Mean Corpuscular Hgb 31.4 pg (27.0-31.0); Mean Corpuscular Volume 93.6 fL (81.0-99.0); Mean Platelet Volume 10.1 fL (7.4-10.4); Platelet Count 211 10^3/uL (130-400); Red Blood Cell Count 4.08 10^6/uL (4.20-5.40); Red Cell Dist. Width 13.4 % (11.5-14.5); White Blood Cell Count 6.1 10^3/uL (4.8-10.8)
[2024-10-24 08:44] LABS: Blood Urea Nitrogen 26 mg/dl (7-17); Calcium 8.7 mg/dl (8.4-10.2); Carbon Dioxide 31 mmol/L (22-30); Chloride 101 mmol/L (98-107); Estimated Creatinine Clearance 59 ml/min; Glucose 87 mg/dl (70-99); Potassium 3.8 mmol/L (3.5-5.1); Sodium 138 mmol/L (135-145); eGFR > 60.00
--- NOTE | 2024-10-24 09:34 | W.PN.CARDCBS ---
Addendum entered and electronically signed by Mami Meier DO 10/24/24 10:38:
Cost of Crescencioxiga $344/month; Jardiance 351.38/month- can reassess as outpatient
Original Note:
Today's Communication / Plan
-
Echocardiogram
Interrogate ICD
OMT
Rate control AF with outpatient management of AF to be determined with EP
Impression / Plan
-
Family Physician: Prabhjot Johnson
Electronic Game Developer: Dr. Elijah Simmons
Impression:
Presented 10/21/2024 with palpitations, chest tightness, shortness of breath
Atrial fibrillation/flutter with rapid ventricular response
Acute on chronic heart failure with mildly reduced ejection fraction, proBNP
Hypertension
Hyperlipidemia
Paroxysmal Atrial fibrillation
Chronic anticoagulation on Eliquis
Cardiomyopathy
Chronic heart failure with reduced ejection fraction
Ventricular tachycardia
Medtronic biventricular ICD
Mitral valve repair 2008
Chronic migraine
History of breast cancer status postchemotherapy and mastectomy
History of spontaneous subdural hemorrhage status post craniotomy 2020
Echocardiogram 11/24/2023: EF 45% with mildly reduced LV systolic function. Mild concentric LVH. Inferolateral hypokinesis. Status post MV repair with peak/mean gradient 9/4 mmHg. Mildly dilated aortic root, sinus of Valsalva 4.0 cm, ST junction 3.5
cm, ascending ao 3.7 cm. Echo stable when compared to echo from 2018.
Echocardiogram from June 07, 2018 shows normal left ventricular chamber size. There is inferolateral and lateral wall hypokinesis with ejection fraction estimated at 45-50 percent. There is mild biatrial enlargement. There is a peak and mean
gradient of 7 and 3 mmHg across the previously repaired mitral valve with only trace mitral regurgitation. Compared to the echocardiogram from May 2017 the ejection fraction was previously noted to be 50% in its felt that the study is largely
unchanged.
Plan:
-Presents 10/21/2024 with progressively worsening shortness of breath, palpitations and chest pressure discomfort
Paroxysmal atrial flutter
-Longstanding history of paroxysmal atrial fibrillation/flutter. Was last seen in cardiology office in May 2024 with increased A-fib burden of 9% on ICD interrogation. Patient refused initiation of amiodarone and was not interested in PVI at
that time.
-Now back in symptomatic atrial flutters/fibrillation.
-Rates reasonable at rest off IV Cardizem but still in 90-low 100s
-Continue uninterrupted Eliquis anticoagulation; denies interruption > one month
-Ideally would like to initiate antiarrhythmic drug however she is adamant about leaving hospital today and refusing longer hospitalization for AAD initiation and also declined amiodarone trial due to prior intolerance.
-She ate today so earliest DCCV would be 10/25 but she prefers outpatient CV
-She has an appointment with Dr. Gunnar Simmons 11/12 and 'knows he will discuss ablation'; she has previously declined.
-Discussed most likely atrial fibrillation could be exacerbating her heart failure. Ideally would be better back in sinus rhythm.
-Interrogate ICD to assess overall A-fib burden and exclude ventricular arrhythmias
-Will review with EP, Dr. Simmons
Acute on chronic heart failure with mildly reduced ejection fraction, EF 45%, improving
-proBNP elevated at 2990 and evidence of interstitial pulmonary edema on chest x-ray.
-CTNI < 0.012 x2
-Lipid profile acceptable on Lipitor 10mg daily: TC 115, TG 62, LDL 52, HDL 51
-Check TSH
-Continue IV diuresis with Lasix 40 mg daily.
-Anticipate transition to oral lasix 20 at time of discharge
-Of note patient had self discontinued Lasix as outpatient in the fall 2023 and states she has no desire to be on diuretics
-Echocardiogram from 11/24/2023 reviewed, EF 45% with stable mitral valve repair.
-Continue GDMT: carvedilol, lisinopril. New Aldactone 25mg daily. Start Farxiga 10mg daily
-Keep K greater than 4, magnesium greater than 2
-Monitor renal function and electrolytes with ongoing diuresis
HPI 10/22/2024:
Carmen is a 83-year-old female with past medical history significant for mitral valve repair, hypertension, hyperlipidemia, paroxysmal atrial fibrillation on chronic anticoagulation with Eliquis, nonischemic cardiomyopathy, chronic heart failure with
mildly reduced ejection fraction, ventricular tachycardia status post ICD, breast cancer status post chemo and mastectomy and spontaneous subdural hemorrhage status post craniotomy in 2020 who presented to emergency department 10/21/2024 with
complaints of shortness of breath and intermittent chest discomfort for several days. She also noted a cough that resolved last week and the morning of presentation noted some off-and-on chills but denied fever. Patient was last seen in cardiology
office in May 2024 and was noted to have increased A-fib burden as patient had discontinued amiodarone due to side effects. She was not interested in resuming amiodarone at that time. She also admitted to self discontinuing Lasix.
In emergency department she was noted to be in atrial fibrillation/flutter with rapid ventricular response with heart rates in the 100s to 150s. Troponin was negative. Chest x-ray pending although preliminary result appears to show mild pulmonary
edema. proBNP elevated at 2990. Patient was given 40 mg IV Lasix in emergency department. She was also given IV Cardizem bolus followed by IV Cardizem drip.
Progress Note - Electronic Game Developer
Subjective
Date of Service: October 24, 2024
Seen and examined. OOB to chair on RA. offers no complaints. Wishes for d/c home today
Objective
Labs:
10/24/24 06:30
10/24/24 06:30
Labs
Hgb 12.8 g/dL (12.0-16.0) 10/24/24 06:30
Hct 38.2 % (37.0-47.0) 10/24/24 06:30
Plt Count 211 10^3/uL (130-400) 10/24/24 06:30
Sodium 138 mmol/L (135-145) 10/24/24 06:30
Potassium 3.8 mmol/L (3.5-5.1) 10/24/24 06:30
BUN 26 mg/dl (7-17) H 10/24/24 06:30
Creatinine 0.7 mg/dL (0.6-1.0) 10/24/24 06:30
Glucose 87 mg/dl (70-99) 10/24/24 06:30
Troponins
10/21/24
15:38
Troponin I < 0.012
Vital Signs and I&O:
Vital Signs
Temp Pulse Resp BP Pulse Ox
98.4 F 98 20 103/61 96
10/24/24 07:29 10/24/24 07:29 10/24/24 07:29 10/24/24 08:14 10/24/24 07:29
Vital Signs
Temp Pulse Resp BP Pulse Ox
98.4 F 98 20 103/61 96
10/24/24 07:29 10/24/24 07:29 10/24/24 07:29 10/24/24 08:14 10/24/24 07:29
Intake & Output
10/22/24 10/23/24 10/24/24 10/25/24
06:59 06:59 06:59 06:59
Intake Total 240 / 240 1260 / 1260 1260 / 1260
Balance 240 / 240 1260 / 1260 1260 / 1260
Physical Exam
Physical Exam
General: No acute distress, AAOX3
Heart: irregularly irregular; ICD site intact
Lungs: bronchovesicular BS; no wheeze, crackles
Abd: Positive BS, NT/ND, neg rebound/rigidity/guarding
Ext: trace edema
Neuro: nonfocal
--- NOTE | 2024-10-24 09:42 | W.PN.HOSP.TC ---
Today's Communication/Plan
-
Cleared by cardiology for discharge today
Assessment / Plan
Assessment / Plan
83-year-old female presented with shortness of breath and intermittent chest discomfort
# Paroxysmal atrial fibrillation with RVR - A flutter
Rate now controlled on a Cardizem gtt. pulse 82. BP 114/76, -EKG shows atrial flutter with heart rate up to 113
Still in a fib, controlled rate, status post IV Cardizem drip
Continue Eliquis. [id number] around 7 for age, sex, CHF, Stroke, HTN.
Patient requesting discharge
Cleared by cardiology for discharge today
# Acute on chronic HFrEF
No sob, feels better
No hypoxia
Resolved on IV Lasix
Cardiology recommends discharge on Lasix 20 mg p.o. daily, Aldactone 25 mg daily
#CAD, troponin neg, no symptoms
#History of ventricular tachycardia status post ICD
#History of mitral regurgitation status post valve repair
#Essential hypertension
-Continue lisinopril, Coreg, Aldactone, Lasix
#Hyperlipidemia
-Continue statin
#History of left breast cancer
#History of migraines
#History of subdural hematoma status post craniotomy
#History of thrombophilia
#Anxiety/depression
Mood is cooperative
-Continue amitriptyline
Physical exam:
GENERAL: no acute distress
HEENT: no deformity, normal nose, moist mucosal membranes
Heart: Irregularly irregular, +S1/S2, mild systolic murmur.
Lungs: Normal effort, clear breath sounds
ABDOMEN: Soft, without focal tenderness; no distention
: No hematuria.
NEUROLOGICAL: Alert and oriented x3, she followed commands.
SKIN: Warm and dry, no rash; trace lower extremity edema
PSYCH: Normal and appropriate interaction
Anticipated Discharge: Today
Subjective/Interval History
-
Date of Service: October 24, 2024
Patient denies chest pain, palpitations. Dyspnea with activity resolved. No fever, no vomiting. She is requesting discharge today.
Objective Data
-
Labs:
Laboratory Results
10/24/24
06:30
WBC 6.1
Hgb 12.8
Hct 38.2
Plt Count 211
Sodium 138
Potassium 3.8
Chloride 101
Carbon Dioxide 31 H
BUN 26 H
Creatinine 0.7
Glucose 87
Calcium 8.7
Vital Signs:
Vital Signs
Temp Pulse Resp BP Pulse Ox
98.4 F 98 20 103/61 96
10/24/24 07:29 10/24/24 07:29 10/24/24 07:29 10/24/24 08:14 10/24/24 07:29
I&O
10/23/24 10/24/24 10/25/24
06:59 06:59 06:59
Intake Total 1260 / 1260 1260 / 1260
Balance 1260 / 1260 1260 / 1260
--- NOTE | 2024-10-24 11:21 | W.PN.UPDATE ---
Update Note
Progress Note Update
Remote interrogation of her Medtronic FILAMENT COIL WINDER device shows ongoing afib x 3 days.
pt declining CV during this admission and wants to go home today
she will f/u w/ Dr Gunnar Simmons as scheduled
started Spironolactone and Lasix this admission - check BMP one week after discharge-lab slip on chart
[2024-10-24 11:23] VITALS: BP 115/71
[2024-10-24 12:47] LABS: TSH Reflex To Free T4 1.88 uIU/ml (0.47-4.68)
[2024-10-24 15:19] VITALS: BP 120/77
--- NOTE | 2024-10-24 15:51 | CM ---
Chart reviewed and plan is to home when stable, with spouse, cost of Farxiga is $344 per month, physician made aware.
Plan; Home with spouse no needs when stable.
--- NOTE | 2024-10-24 16:36 | W.DCSUMMARY ---
Discharge Summary
Discharge Data
Date of Admission: 10/21/24
Date of Discharge: 10/24/24
-
Pending Results: No
Hospital Course
Discharge diagnosis:
Atrial fibrillation/flutter with rapid ventricular response
Acute on chronic heart failure with a reduced ejection fraction
Coronary artery disease
History of ventricular tachycardia status post intracardiac defibrillator
History of mitral regurgitation s/p repair
Essential hypertension
Consults: Cardiology
Hospital course:
83-year-old female with a past medical history of CAD, CHF, atrial fibrillation/flutter on Eliquis, ventricular tachycardia status post ICD, and mitral regurgitation status post repair was admitted for rapid atrial fib/flutter and acute on chronic
heart failure with a reduced ejection fraction. Patient was seen in conjunction with cardiology. Her heart rate became controlled on an IV diltiazem drip, which was then discontinued. Her heart rate remained controlled. Her ICD was interrogated,
she has been in atrial fibrillation/flutter for 3 days. Patient declined cardioversion this admission, and requested discharge.
Patient was treated with IV Lasix for her heart failure. Her breathing normalized. Cardiology recommends discharge on Lasix 20 mg p.o. daily, and Aldactone 25 mg p.o. daily. She used to be on Lasix 20 mg daily, but self discontinued in the fall
2023. She has been counseled to continue taking her Lasix and her other medications as prescribed. She needs to follow-up with cardiology in the office, and her primary care doctor in 1 week.
Disposition: Home self-care
Discharge planning: Required 46 minutes
Discharge Plan
-
Patient Disposition: Home (Routine Discharge)
Discharge Diagnosis/Procedures: Rapid atrial fibrillation, congestive heart failure
Condition: Good
Diet: Low Fat, Low Cholesterol and Low Sodium
Activity: As tolerated
Driving Restrictions: As prior to admission
Blood Work: BMP one week after discharge- lab slip in chart
Instructions: *[facility] Heart Failure Instructions
Referrals:
Gabriel Kwon MD [Family Provider] - in one week
Elijah Simmons MD [Active] - 11/10/24 2:20 pm
Prescriptions:
New
spironolactone 25 mg Tablet
25 mg PO DAILY Qty: 30 0RF
furosemide 20 mg Tablet
20 mg PO DAILY Qty: 30 0RF
Continued
carvedilol 12.5 MG tablet
25 mg PO BID
amitriptyline 25 MG tablet
25 mg PO HS
PreserVision AREDS-2 1 EACH capsule
1 cap PO BID
atorvastatin 10 MG tablet
10 mg PO QPM
multivitamin with folic acid [Tab-A-Juan Carlos] 1 TABLET tablet
1 tab PO DAILY
lisinopril 20 MG tablet
20 mg PO DAILY
omega 2-nic-tyh-fish oil [Fish Oil] 1,000 mg (120 mg-180 mg) Capsule
2 cap PO DAILY
Eliquis 5 mg Tablet
5 mg PO BID
ibuprofen [Advil] 200 mg Tablet
400 mg PO DAILYPRN PRN (Reason: mild pain)
Systane Complete 0.6 % Drops
1 drp BOTH EYES TIDPRN PRN (Reason: dryness)
Discharge Orders:
Discharge Patient (As Directed); Ordered 10/24/24
Ordered By: Justin Stroud
Discharge Date and Time
Print Language: SALVADOREAN
--- NOTE | 2024-10-25 15:09 | W.HF.CON ---
Heart Failure
- LV Function
Left ventricular function study result: LV Ejection fraction </= 35%
Ejection Fraction Percentage: 30-35
- ARNI
Patient already on ARNI: No
Heart Failure ARNI Contraindication: Hypotension
- ACEI/ARB
Patient already on ACEI/ARB: Yes
- Beta Raul
Patient already on Evidence Based Beta Raul: Yes
- Mineralocorticord Receptor Antagonist
Patient already on MRA: Yes
- SGLT-2 Inhibitor
Patient already on SGLT-2 Inhibitor: No
Heart Failure SGLT-2 Inhibitor Contraindication: Patient Refusal
- Afib Anticoagulation
Patient already on Anticoagulation for Afib: Yes
- NYHA CHF Classification
NYHA CHF Classification Level: Class III - Symptoms w/ min exertion, interferes w/ nml daily activity
- ACC/AHA Stage
ACC/AHA Stage: Stage C: Symptomatic Heart Failure
== END 2024-10-24 17:16 | disposition home or self-care (01) | DRG 291 ==
LOC: 4 WEST ACU 19:20
PROVIDERS: Emergency Medicine; Internal Medicine; Internal Medicine Cardiovascular Disease; ADMITTING PHYSICIAN Hospitalist; ATTENDING PHYSICIAN Family Medicine; CONSULT PHYSICIAN Internal Medicine Cardiovascular Disease; EMERGENCY PHYSICIAN Emergency Medicine; FAMILY PHYSICIAN Internal Medicine
DX: I11.0 Hypertensive heart disease with heart failure (principal); I50.23 Acute on chronic systolic (congestive) heart failure; I47.20 Ventricular tachycardia, unspecified; I48.92 Unspecified atrial flutter; D68.59 Other primary thrombophilia; I25.10 Atherosclerotic heart disease of native coronary artery without angina pectoris; I48.0 Paroxysmal atrial fibrillation; E78.00 Pure hypercholesterolemia, unspecified; F32.A Depression, unspecified; F41.9 Anxiety disorder, unspecified; I42.7 Cardiomyopathy due to drug and external agent; G43.909 Migraine, unspecified, not intractable, without status migrainosus; Z79.01 Long term (current) use of anticoagulants; Z90.12 Acquired absence of left breast and nipple; Z92.21 Personal history of antineoplastic chemotherapy; Z88.3 Allergy status to other anti-infective agents; Z87.891 Personal history of nicotine dependence; Z85.3 Personal history of malignant neoplasm of breast; Z82.49 Family history of ischemic heart disease and other diseases of the circulatory system; Z79.899 Other long term (current) drug therapy; Z95.810 Presence of automatic (implantable) cardiac defibrillator; Z86.79 Personal history of other diseases of the circulatory system
CPT/HCPCS: 71045; 80048; 80053; 83690; 83880; 84443; 84484; 85025; 85027; 93005; 93289; 93306; 96365; 96366; 96375; 99291

== ENCOUNTER 2024-11-14 07:22 | Day surgery (SDC) | payer MEDICARE, OTHER, SELFPAY | END 2024-11-14 09:55 | disposition home or self-care (01) | LOC: CATH 07:22 | PROVIDERS: ATTENDING PHYSICIAN Internal Medicine Cardiovascular Disease; FAMILY PHYSICIAN Internal Medicine; OTHER PHYSICIAN Internal Medicine Cardiovascular Disease | DX: I48.0 Paroxysmal atrial fibrillation (principal); I50.20 Unspecified systolic (congestive) heart failure; Z79.01 Long term (current) use of anticoagulants; I10 Essential (primary) hypertension | CPT/HCPCS: 92960; 93005 ==

== ENCOUNTER 2024-12-08 08:08 | Inpatient (IN) | payer MEDICARE, OTHER, SELFPAY ==
--- NOTE | 2024-11-14 12:37 | ITS.CL.CARDI ---
Cycle Director - Cardioversion
Cardioversion
Procedure Report:
Date of Procedure: 11/14/24
Procedure: Cardioversion
Indication: Symptomatic atrial fibrillation
Performing Physician: Mami Meier DO [facility]
Anticoagulation: Eliquis
Technique: The patient was brought to the holding area. Rhythm was confirmed by device interrogation. Signed informed consent was obtained. A time out was called and performed. The patient was anesthetized by the anesthesia service.
Anticoagulation status was reviewed and appropriate. R2 pads were placed anteriorly and posteriorly. A 200 J synchronized biphasic shock restored Atrial-sensed ventricular-paced rhythm. Rhythm was confirmed by device interrogation and twelve-lead
EKG. Patient had postprocedural hypotension which resolved prior to discharge. She was asked to hold spironolactone and Lasix today as she is taking her other cardiac medications. She was asked to continue to monitor blood pressure trends and
notify our office if they remain low.
Conclusion: Successful cardioversion from atrial fibrillation to atrial-sensed ventricular-paced rhythm
Recommendation: Routine post cardioversion care. Continue exterminator termite anticoagulation. Patient is scheduled for an ablation with Dr. Gunnar Simmons on December 06, 2024.
[2024-11-24 10:46] VITALS: BMI 24.4
[2024-12-06] VITALS (19 sets, daily range): BP systolic 95–123; BP diastolic 60–91
[2024-12-06] MEDS: NSS 500 IV (08:39)
--- NOTE | 2024-12-06 10:55 | ITS.CL.ABL ---
Fowl Blood Tester - Ablation
Ablation
Procedure Report:
ELECTROPHYSIOLOGIC STUDY AND POSSIBLE ABLATION
DATE: December 06, 2024
Primary Care Provider: Dr Cynthia Rios
INDICATION:
Symptomatic Atrial Fibrillation.
She has symptomatic persistent atrial fibrillation duration of approximately 6 mo.
She has demonstrated increasing burden of atrial fibrillation since stopping amiodarone and now has had persistent atrial fibrillation with rates that are rapid. This has been associated with decompensated congestive heart failure. Heart failure
with reduced ejection fraction and volume overload requiring hospital admission and diuresis. Echocardiogram from 2024 shows reduction in LVEF to 30-35%. Previous echocardiogram LVEF was estimated at 45%.
She continues to refuse re-consideration for amiodarone.
HISTORY: See H and P.
Symptomatic AF, poorly controlled with attempted medical therapy
HAS-BLED: 2
Age
Subdural hematoma
CHADSVASc: 4
CHF (HFrEF), NYHA class 3
Age
F Gender
PRESENTING RHYTHM: AF
HISTORY: See H and P.
Symptomatic AF, poorly controlled with attempted medical therapy.
ANTICOAGULATION: Apixaban 5 mg twice daily
'TIME-OUT': called and confirmed.
SEDATION/ANESTHESIA: provided via the anesthesia department using general anesthesia.
PROCEDURE:
Medtronic multi-chamber (CHIEF STEWARD/STEWARDESS) defibrillator was interrogated and found to have normal function. I programed detections off.
Ultrasound Guidance with real-time visualization of needle insertion and vessel patency performed by me for femoral venous Vascular Access.
Under real-time US guidance, the needle was advanced with negative pressure into the vein. The needle was seen entering the vessel lumen with a good return of dark red flow, the syringe was removed, non-pulsatile, dark red blood low was noted and
the wire was passed without difficulty, then the needle was removed. US confirmed the wire was in the vein, not going into an artery,
Images were taken and saved for the patient's permanent record. Imaging findings typical femoral venous anatomy. Direct visualization of needle puncture into the femoral vein was observed and recorded.
A decapolar CS catheter was placed within the CS for mapping and pacing.
The intracardiac ultrasound catheter was positioned in the RA for continuous intracardiac ultrasound imaging.
Heparin bolus and infusion to target ACT at 300 -350 seconds was administered. Transseptal puncture was performed. This entailed advancing a sheath with dilator into the superior vena cava and withdrawing both (monitoring intracardiac ultrasound,
fluoroscopy and tip pressure) with the tip oriented toward the atrial septum. The fossa ovalis was engaged (indicated by sudden displacement of the sheath tip as well as tenting of the fossa seen on intracardiac ultrasound).
The MedServe transseptal system was used. Left atrial catheter position was confirmed by echocardiographic imaging and fluoroscopy followed by RF delivery using the SMART system resulting in successful LA access with pressure monitoring
demonstrating LA pressure waveforms (LA mean pressure 18 mm Hg). The sheath was advanced over the dilator and positioned in the left atrium.
The Zhou Grid multipolar mapping catheter was initially positioned through the transseptal sheath for high density mapping.
Electrical cardioversion with 200 J external shock restored sinus rhythm. Mapping in sinus rhythm was then attempted but any atrial tachycardia (310 ms) occurred shortly after holiness of sinus rhythm.
Earliest activation is at the proximal CS. Activation and entrainment mapping of the RA finds the RA to be distant from the tachycardia circuit/focus. Next the LA was mapped
Geometry, voltage and activation mapping was performed using the Zhou multipolar grid catheter. Ensite-X was utilized for three-dimensional electroanatomical mapping.
A 3-D map was created using Ensite-X in Voxel mode. A 3-D reconstructed CT image was compared to the 3-D Navex map to assist in anatomic evaluation, mapping and ablation.
The rhythm terminated to sinus rhythm during mapping of the left atrium. The nearly complete activation map of the tachycardia finds focal activation spread from the LA by the prox-mid CS (at the MV ring prosthesis).
The decision was made to proceed with AF ablation, then reassess AT induction/mapping.
The ZUGGIapRawFlow PFA catheter and system was used for cardiac ablation. Catheter positioning was guided and confirmed using both I.C.E. and fluoroscopy.
PV isolation approach was used to electrically isolate each PV ostia (LSPV, LIPV, RSPV, RIPV).
Additional energy applications/additional ablation set was required to accomplish wide area circumferential ablation around each of the pulmonary vein sets and additionally ablation to accomplish LA posterior wall ablation.
During ablation, AT resumed at CL 310 ms). PVI and LA post wall ablation was completed. Attention was then turned to the atrial tachycardia which mapped to the floor of the LA along the MV annulus at the prox-mid CS. Pulsed electric field energy
delivery was then applied to the targeted area. With pulsed electric field energy delivery the tachycardia changed cycle length 400 ms additional pulsed electric field energy deliveries did not alter the tachycardia. Once again the Zhou grid
catheter was substituted and a high density map was created finding that breakout of the tachycardia remains in the general location of the first targeted atrial tachycardia focus, now slightly further leftward. Post electric field energy was once
again delivered to this area with a change in atrial tachycardia cycle length resulting, tachycardia cycle length 340 ms. Activation mapping now suggests breakout from the floor of the left atrium at the septum, breakout from the area of the
coronary sinus ostium. Mapping of the left atrium did not find an early site, pre-P wave. Attention was then turned to remapping of the right atrium which found earliest activation posterior to the ostium of the coronary sinus along the floor of
the right atrium. RF energy was substituted and using a 4 mm irrigated tip contact sensing catheter RF energy was delivered to the early site of what was mapped as a focal atrial tachycardia, multiple energy deliveries failed to alter the
tachycardia. Cardioversion restored sinus rhythm.
At the end of the procedure there is no change in the fluoroscopic appearance of the leads after temporary catheters were removed.
Interrogation of the multichamber/CHIEF STEWARD/STEWARDESS defibrillator found normal stable function. I did perform reprogramming from the preprocedure settings. Tachycardia settings were reprogrammed on. I reprogrammed base pacing rate to 55 ppm and I programmed on
atrial preference pacing.
I.C.E. :
Pre-Ablation Post-Ablation
LVEF: 30 % 30 %
WMA: global global
Pericardial effusion: trace post trace post
COMPLICATIONS:
None
SUMMARY:
- Mapping and ablation to isolate the PVs
- Additional AF ablation set after PVI (LA post wall).
- Mapping and ablation of second tachycardia (LA focal tachycardia)
- Interrogation with reprogramming of multichamber (cardiac resynchronization) defibrillator
- 3-D Electroanatomical Mapping
- Intracardiac Ultrasound
- Ultrasound guidance for vascular access
Post ablation, I discussed today's findings and results with the patient's .
RECOMMENDATIONS:
- Observe in monitored bed.
- Maintain oral anticoagulation.
- If there is recurrence of atrial tachycardia recommendation would be to move towards antiarrhythmic drug therapy.
She wishes to avoid amiodarone as she poorly tolerated this in the past.
Given her heart failure with reduced ejection fraction would prefer to avoid sotalol.
I think may do well with dofetilide should antiarrhythmic drug be needed
There is also the option of AV node ablation which would allow for 100% cardiac resynchronization pacing via her defibrillator
- Office visit with me is scheduled for April 07, 2025
- Continue cardiovascular care with Dr. Serena Simmons
Copy to:
Dr Cynthia Rios
[2024-12-06 12:00] LABS: ACT-LR - POC 329 Seconds (116-155)
[2024-12-06 12:28] LABS: ACT-LR - POC 348 Seconds (116-155)
[2024-12-06 13:39] LABS: ACT-LR - POC 392 Seconds (116-155)
[2024-12-06 14:13] LABS: ACT-LR - POC 327 Seconds (116-155)
[2024-12-06] MEDS: LASIX 40 MG IV (15:45)
--- NOTE | 2024-12-06 16:48 | CM ---
Chart reviewed. Patient is independent of ADLS, lives with her in a apartment in a [place], [address]st floor, 0 [address], 0 DME. Plan is for the patient to return home. CM to follow
--- NOTE | 2024-12-06 17:06 | PTCARENOTE ---
Patient received from shop laborer awake and alert. AV paced, bursts of tachycardia into the 120's. BP 101/75. Right femoral soft and dressing dry, figure 8 intact. HOB flat until 1840, right DP +1, left DP +2. Did void on the bedpan 300 cc of dark
yellow urine. Unable to void using purwick. Oxygen 3 liter NC 94%. at bedside, dinner ordered, call wells in reach
[2024-12-06] MEDS: LIPITOR 10 MG PO (17:46)
--- NOTE | 2024-12-06 19:15 | PTCARENOTE ---
Figure 8 suture removed.
--- NOTE | 2024-12-06 19:48 | PTCARENOTE ---
Received pt @ change of shift. Pt AAOx3. VSS. Figure 8 removed @ 193. Right groin clean, dry, and intact. Hemostasis pad, gauze and tegaderm placed. Discussed being able to sit up further over time. Pt verbalized understanding. Call wells in reach.
[2024-12-06] MEDS: ELIQUIS 5 MG PO (21:04)
[2024-12-06] MEDS: COREG 25 MG PO (21:05)
[2024-12-06] MEDS: ELAVIL 25 MG PO (22:28)
[2024-12-07] VITALS (9 sets, daily range): BP systolic 95–120; BP diastolic 56–75; BMI 24.6
[2024-12-07 05:10] LABS: Hematocrit 32.8 % (37.0-47.0); Hemoglobin 11.2 g/dL (12.0-16.0); Mean Corp Hgb Conc. 34.1 g/dL (33.0-37.0); Mean Corpuscular Hgb 32.1 pg (27.0-31.0); Mean Platelet Volume 10.1 fL (7.4-10.4); Platelet Count 169 10^3/uL (130-400); Red Blood Cell Count 3.49 10^6/uL (4.20-5.40); Red Cell Dist. Width 14.6 % (11.5-14.5); White Blood Cell Count 8.5 10^3/uL (4.8-10.8)
[2024-12-07 05:33] LABS: Blood Urea Nitrogen 37 mg/dl (7-17); Calcium 8.3 mg/dl (8.4-10.2); Carbon Dioxide 26 mmol/L (22-30); Chloride 107 mmol/L (98-107); Estimated Creatinine Clearance 49 ml/min; Glucose 113 mg/dl (70-99); Magnesium 2.1 mg/dl (1.6-2.3); Potassium 4.4 mmol/L (3.5-5.1); Sodium 140 mmol/L (135-145); eGFR > 60.00
--- NOTE | 2024-12-07 07:58 | W.CARD.TIKOS ---
Initiate Tikosyn
-
I verify that the patient has not taken any verapamil (Isoptin/Calan), ketoconazole (Nizoral), cimetidine (Tagamet), trimethoprim (Trimpex), trimethoprim/sulfamethoxazole (Bactrim), megesterol (Megace), prochlorperazine (Compazine),
hydrochlorothiazide (HCTZ), dolutegravir (Tivicay) or any Class I or Class III anti-arrhythmic within the last three days
AND
I verify that the patient has not taken amiodarone within the last THREE months, or that the patient's amiodarone plasma concentration is <0.3 mcg/mL.
Creatinine 0.8 mg/dL (0.6-1.0) 12/07/24 04:30
Estimated Creat Clear 49 ml/min 12/07/24 04:30
Does patient have a Ventricular Conduction Abnormality: Yes
I have assessed the baseline QTc interval (using QT for heart rate less than 60 bpm) and deemed the patient is appropriate for Dofetilide therapy. I understand that Tikosyn is contraindicated if the QTc is >440msec (500msec in patients with
ventricular conduction abnormalities).
Baseline QTc (in msec): 550
QTc interval is greater than 440msec without conduction abnormality OR greater than 500msec with a conduction abnormality, but acceptable to proceed per Cardiology attending.
Reason for Administration with Prolonged QTc: Paced Rhythm
Ordering Physician: Elijah Simmons
--- NOTE | 2024-12-07 09:25 | W.PN.CARDCBS ---
Addendum entered and electronically signed by Elijah Simmons MD 12/07/24 15:15:
Patient seen, interviewed and examined by me.
Well-appearing, no acute distress
Regular rate and rhythm with normal S1 and S2, no S3 no S4. There is a grade 1/6 apical holosystolic murmur and no rubs. PMI is normally placed.
Lungs are clear to auscultation bilaterally without wheezes rales or rhonchi.
Abdomen soft nontender nondistended with normoactive bowel sounds
Extremities show trace pretibial edema bilaterally no clubbing or cyanosis.
Neurologic exam is grossly nonfocal.
Review of telemetry shows that she is mostly atrial paced (atrial preference pacing is programmed on) with short burst of paroxysmal atrial tachycardia and ventricular rates up to 120 to 130 bpm. Asymptomatic.
I sat with her and her and reviewed yesterday's findings and results in detail. I am certainly concerned for ongoing paroxysmal atrial tachycardia although the episodes seem to be quite short-lived and asymptomatic. With the episodes she
does lose some percentage of cardiac resynchronization pacing. We discussed options. We settled on an attempt of trying dofetilide. She is on amitriptyline and her renal function is borderline therefore I use low-dose at 125 mcg twice daily.
Review of her first post dofetilide ECG shows stable corrected QT. She did develop a flushing sensation. She tells me she had a similar reaction with amiodarone. At this point I have discussed with her attempting the second dose of dofetilide and
reassessing if she has flushing again if she does we will have to abandon dofetilide and at that point I would recommend no antiarrhythmic drug therapy and simply following for arrhythmia recurrence. Given her poor tolerance to amiodarone and the
fact that she has heart failure with reduced ejection fraction which limits sotalol use, antiarrhythmic drug therapy is then going to be quite limited and we may need to consider AV chase ablation.
In the meantime I interrogated her ICD and have reprogrammed her ICD. I have programmed off atrial preference pacing as her heart rates were somewhat elevated with this programmed on. I also changed her base pacing rate to 60 bpm.
I have discussed all of this with her and her . I have answered all of their questions. They are in agreement with what I have recommended.
Original Note:
Today's Communication / Plan
-
initiate tikosyn
monitor QTc/ST
continued diuresis with IV lasix
continue to monitor for 48h
Impression / Plan
-
PCP: Gabriel Kwon MD
CDY: Gunnar Simmons MD
84 y/o, presents with symptomatic persistent AFib, demonstrating increased burden of afib since stopping amiodarone and now has persistent afib with rapid rates. This is associated with decompensated congestive HFrEF requiring hospital admission and
diuresis. Recent echo with EF 30-35%, had been 45%. Refuses further amiodarone at this time for rhythm control.
Presented to EP lab, s/p PFA with LAPW and LA Focal tachycardia ablation. Elevated LA pressures at 18 and was given 40mg IV lasix with moderate diuresis.
Overnight on tele, she was V/AV paced with bursts AT/AF 120s, which became more frequent, asymptomatic.
IMPRESSION:
Persistent AFib
s/p PFA w/LAPW and AT ablation, 12/06/24
Recurrent AF/AT post procedure
Tikosyn initiation
Chronic systolic HFrEF 30=35%
VT, Bi-V ICD implant w/gen change 2019
Severe MR, s/p MV repair (2008 @[facility])
Spontaneous SDH, resolved (2020)
L breast CA s/p mastectomy
PLAN:
Tele- V/AV paced 85 w/frequent bursts AF/AT 120s
refuses amiodarone but agreeable to tikosyn
will initiate at 125mcg Q12h- paced QT is 550- will monitor QTc/ST intervals, creatinine
option of AV node ablation is available if tikosyn not tolerated
Eliquis resumed last evening
groin site stable
Elevated LA pressures during procedure- given lasix 40mg IV post procedure and today
monitor I/O and repeat labs in AM
continue lisinopril, spironolactone, carvedilol
monitor on tele through 5 doses tikosyn- likely 48h
followup at [facility] as scheduled and with Dr. Lyons thereafter
Progress Note - Senior Data Scientist
Subjective
Date of Service: December 07, 2024
Denies cp/palps/dyspnea
oob ambulating
groin site without pain
Objective
Labs:
12/07/24 04:30
12/07/24 04:30
Labs
Hgb 11.2 g/dL (12.0-16.0) L 12/07/24 04:30
Hct 32.8 % (37.0-47.0) L 12/07/24 04:30
Plt Count 169 10^3/uL (130-400) 12/07/24 04:30
Sodium 140 mmol/L (135-145) 12/07/24 04:30
Potassium 4.4 mmol/L (3.5-5.1) 12/07/24 04:30
BUN 37 mg/dl (7-17) H 12/07/24 04:30
Creatinine 0.8 mg/dL (0.6-1.0) 12/07/24 04:30
Glucose 113 mg/dl (70-99) H 12/07/24 04:30
Vital Signs and I&O:
Vital Signs
Temp Pulse Resp BP Pulse Ox
97.6 F 72 18 95/67 94
12/07/24 08:08 12/07/24 08:30 12/07/24 08:08 12/07/24 07:53 12/07/24 08:43
Vital Signs
Temp Pulse Resp BP Pulse Ox
97.6 F 72 18 95/67 94
12/07/24 08:08 12/07/24 08:30 12/07/24 08:08 12/07/24 07:53 12/07/24 08:43
Intake & Output
12/05/24 12/06/24 12/07/24 12/08/24
06:59 06:59 06:59 06:59
Intake Total 2530 / 2530
Output Total 700 / 700
Balance 1829 / 1829
Physical Exam
Physical Exam
AAOx3, MAEE 5/5
RRR S1 S2 no murmurs
CTA bilat, non labored
soft abd, + bs
right groin site without ht/bleeding, non tender
bilat extremities w/palpable distal pulses, no edema
[2024-12-07] MEDS: ALDACTONE 25 MG PO (09:43)
[2024-12-07] MEDS: ELIQUIS 5 MG PO ×2 (09:43→19:54)
[2024-12-07] MEDS: LASIX 40 MG IV (09:43)
[2024-12-07] MEDS: TIKOSYN PO (09:43)
[2024-12-07] MEDS: TIKOSYN 125 MCG PO ×2 (10:22→19:55)
[2024-12-07] MEDS: COREG PO (10:23)
[2024-12-07] MEDS: COREG 25 MG PO ×2 (11:09→19:54)
--- NOTE | 2024-12-07 12:32 | CM ---
Pricing on Dofetilide 125mcq is covered through the patient's [facility], ID#[id number], at $61.77. It is cheaper through [facility] at $33. It is not in stock at the patient's [facility]. They will be able to get it in 24 hours when called in.
Patient will need a 3 day supply to take home. CM to follow
[2024-12-07 13:20] LABS: ACT-LR - POC > 397 Seconds (116-155)
[2024-12-07 13:20] LABS: ACT-LR - POC > 397 Seconds (116-155)
[2024-12-07] MEDS: BENADRYL 25 MG PO (15:02)
[2024-12-07] MEDS: LIPITOR 10 MG PO (17:51)
--- NOTE | 2024-12-07 19:35 | PTCARENOTE ---
Pt OOB walking in room. Right femoral site with dry and intact dressing , no bleeding or hematoma. Pt started on Tikosyn at 125mcg, baseline QTc 550ms, following 'ST' measurement per Ekaterina Rea NP. Pt with slightly flushed face prior to starting
Tikosyn which became more pronounced throughout the day. Pt seen by Dr.Rob Simmons, benadryl given and the flushing diminished. Will watchclosely after next dose of tikosyn. Telemetry shows vent. paced rhythm with bouts of atrial tachycardia.
--- NOTE | 2024-12-07 21:01 | PTCARENOTE ---
Received pt @ change of shift. AAOx3. OOB in chair. VSS. Right groin clean, dry, and intact-- no swelling, ecchymosis. Soft to touch. Discussed next Tikosyn dose with pt. Pt verbalized calling RN with any change in breathing, flushing, or heaviness
in legs that was experienced earlier. Discussed EKG two hours after dose and plans for rest of evening. Pt also stated she would be refusing any additional bloodwork from that moment on because there was 'no where else to be able to pull it from
since her IV was moved.' Discussed importance of bloodwork with pt, but said she still refused. Call wells within reach.
[2024-12-07] MEDS: ELAVIL 25 MG PO (21:52)
[2024-12-07] MEDS: COLACE 100 MG PO (21:52)
[2024-12-08] VITALS (7 sets, daily range): BP systolic 90–141; BP diastolic 55–75; BMI 24.9
[2024-12-08] MEDS: TIKOSYN 125 MCG PO ×2 (08:03→19:57)
[2024-12-08] MEDS: COREG 25 MG PO ×2 (08:03→19:56)
[2024-12-08] MEDS: COLACE 100 MG PO ×2 (08:03→19:56)
[2024-12-08] MEDS: LASIX 20 MG PO (08:03)
[2024-12-08] MEDS: ALDACTONE 25 MG PO (08:03)
[2024-12-08] MEDS: ELIQUIS 5 MG PO ×2 (08:03→19:57)
--- NOTE | 2024-12-08 11:01 | W.PN.CARDCBS ---
Addendum entered and electronically signed by Elijah Simmons MD 12/08/24 12:19:
Patient seen, interviewed and examined by me.
Well-appearing, no acute distress
Regular rate and rhythm with normal S1 and S2, no S3 no S4. There is a grade 1/6 apical holosystolic murmur and no rubs. PMI is normally placed.
Lungs are clear to auscultation bilaterally without wheezes rales or rhonchi.
Abdomen soft nontender nondistended with normoactive bowel sounds
Extremities show trace pretibial edema bilaterally no clubbing or cyanosis.
Neurologic exam is grossly nonfocal.
I reviewed today's ECG was fine stable corrected QT interval at approximately 530 ms. I reviewed today's telemetry which shows she is been maintaining sinus rhythm/atrial pacing.
She has diuresed well after 2 doses of IV Lasix.
I reviewed these findings with her and answered all of her questions.
-- Maintain dofetilide 125 mcg twice daily and continue to follow ECG. Her fifth dose of dofetilide will be tomorrow morning.
-- Maintain Eliquis 5 mg twice daily for atrial fibrillation related thromboembolic risk reduction
-- Stop IV Lasix and resume her outpatient oral dose of Lasix 20 mg daily
-- Continue guideline directed medical therapy for heart failure with reduced ejection fraction. Continue carvedilol 25 mg twice daily, spironolactone 25 mg daily, lisinopril 20 mg daily.
Original Note:
Today's Communication / Plan
-
continue Tikosyn loading dose #3/4 today of 5
monitor facial flushing
switch IV lasix to PO today
Impression / Plan
-
PCP: Gabriel Kwon MD
CDY: Gunnar Simmons MD
84 y/o, presents with symptomatic persistent AFib, demonstrating increased burden of afib since stopping amiodarone and now has persistent afib with rapid rates. This is associated with decompensated congestive HFrEF requiring hospital admission and
diuresis. Recent echo with EF 30-35%, had been 45%. Refuses further amiodarone at this time for rhythm control.
Presented to EP lab, s/p PFA with LAPW and LA Focal tachycardia ablation. Elevated LA pressures at 18 and was given 40mg IV lasix with moderate diuresis.
Overnight on tele, she was V/AV paced with bursts AT/AF 120s, which became more frequent, asymptomatic.
IMPRESSION:
Persistent AFib
s/p PFA w/LAPW and AT ablation, 12/06/24
Recurrent AF/AT post procedure
Tikosyn initiation
Chronic systolic HFrEF 30=35%
VT, Bi-V ICD implant w/gen change 2019
Severe MR, s/p MV repair (2008 @[facility])
Spontaneous SDH, resolved (2020)
L breast CA s/p mastectomy
PLAN:
Tele- V/AV paced
refuses amiodarone but agreeable to tikosyn
continue dose #3 125mcg Q12h- paced QT is 531- will monitor QTc/ST intervals, creatinine
some flushing yesterday with initiation, which continues today but slightly milder, continue to monitor
option of AV node ablation is available if tikosyn not tolerated
OAC Eliquis
groin site stable
Elevated LA pressures during procedure- given lasix 40mg IV post procedure and 12/07
switch to PO lasix today
BP low yesterday and lisinopril on hold, continue to hold today and resume in am if bp stable, continue spironolactone and carvedilol
monitor on tele through 5 doses tikosyn- home tomorrow
followup at [facility] as scheduled and with Dr. Lyons thereafter
Progress Note - Detention Sergeant
Subjective
Date of Service: December 08, 2024
no cp, sob, mild flushing of face slightly improved from yesterday
Objective
Labs:
12/07/24 04:30
12/07/24 04:30
Labs
Hgb 11.2 g/dL (12.0-16.0) L 12/07/24 04:30
Hct 32.8 % (37.0-47.0) L 12/07/24 04:30
Plt Count 169 10^3/uL (130-400) 12/07/24 04:30
Sodium 140 mmol/L (135-145) 12/07/24 04:30
Potassium 4.4 mmol/L (3.5-5.1) 12/07/24 04:30
BUN 37 mg/dl (7-17) H 12/07/24 04:30
Creatinine 0.8 mg/dL (0.6-1.0) 12/07/24 04:30
Glucose 113 mg/dl (70-99) H 12/07/24 04:30
Vital Signs and I&O:
Vital Signs
Temp Pulse Resp BP Pulse Ox
98.2 F 69 20 117/64 97
12/08/24 07:37 12/08/24 07:45 12/08/24 07:37 12/08/24 07:37 12/08/24 07:37
Vital Signs
Temp Pulse Resp BP Pulse Ox
98.2 F 69 20 117/64 97
12/08/24 07:37 12/08/24 07:45 12/08/24 07:37 12/08/24 07:37 12/08/24 07:37
Intake & Output
12/06/24 12/07/24 12/08/24 12/09/24
06:59 06:59 06:59 06:59
Intake Total 2530 / 2530 400 / 400 300 / 300
Output Total 700 / 700
Balance 1830 / 1830 400 / 400 300 / 300
Physical Exam
Physical Exam
NAD< AOX3
S1, S2, RRR
CTAB, non labored, no wheeze
SNTND bsx4
No LE edema
--- NOTE | 2024-12-08 11:56 | CM ---
Chart reviewed. Patient is independent of ADLS, lives with her in [place] in a [address]st floor apt, 0 [address], 0 DME. Patient will need a 3 day supply of Dofetillide to to go to home. Plan is for the patient to return home. CM
to follow
[2024-12-08] MEDS: LIPITOR 10 MG PO (17:38)
[2024-12-08] MEDS: ELAVIL 25 MG PO (22:23)
--- NOTE | 2024-12-09 00:37 | PTCARENOTE ---
Received pt at change of shift OOB in chair. Right groin site open to air, no bleeding or hematoma. Positive pedal pulses. +1 edema in b/l LE. VSS. V paced with occasional AV pacing on the monitor. HR in the 70s. 4th Tikosyn dose given and discussed
with pt EKG to be done 2 hours after. EKG done and Qtc 519. ST calculated at 399. Pt denies any pain or SOB. Educated pt to inform RN of any changes. Pt verbalized understanding.
On tele review pt has bursts of what appears to be Afib and then back to a paced rhythm. Pt denies any symptoms.
[2024-12-09 04:24] VITALS: BP 102/60
[2024-12-09 04:46] LABS: Hematocrit 31.1 % (37.0-47.0); Hemoglobin 10.5 g/dL (12.0-16.0); Mean Corp Hgb Conc. 33.8 g/dL (33.0-37.0); Mean Corpuscular Hgb 31.6 pg (27.0-31.0); Mean Corpuscular Volume 93.7 fL (81.0-99.0); Platelet Count 156 10^3/uL (130-400); Red Blood Cell Count 3.32 10^6/uL (4.20-5.40); Red Cell Dist. Width 14.1 % (11.5-14.5); White Blood Cell Count 6.9 10^3/uL (4.8-10.8)
--- NOTE | 2024-12-09 04:50 | PTCARENOTE ---
Pt slept well overnight. Denies facial flushing at this time. Noted pt nose is slightly red. Pt stated she has rosacea and that is normal for her. Pt resting in bed. Call wells within reach.
[2024-12-09 05:08] LABS: Blood Urea Nitrogen 26 mg/dl (7-17); Calcium 8.6 mg/dl (8.4-10.2); Carbon Dioxide 28 mmol/L (22-30); Chloride 106 mmol/L (98-107); Estimated Creatinine Clearance 56 ml/min; Glucose 94 mg/dl (70-99); Potassium 4.2 mmol/L (3.5-5.1); Sodium 139 mmol/L (135-145); eGFR > 60.00
[2024-12-09 06:00] VITALS: BMI 24.6
[2024-12-09 07:40] VITALS: BP 120/66
[2024-12-09] MEDS: LASIX 20 MG PO (07:56)
[2024-12-09] MEDS: ELIQUIS 5 MG PO (07:57)
[2024-12-09] MEDS: TIKOSYN 125 MCG PO (07:57)
[2024-12-09] MEDS: COLACE 100 MG PO (07:57)
[2024-12-09] MEDS: ALDACTONE 25 MG PO (07:57)
[2024-12-09] MEDS: COREG 25 MG PO (07:58)
--- NOTE | 2024-12-09 09:34 | W.PN.CARDCBS ---
Addendum entered and electronically signed by Simeon Young MD 12/09/24 10:02:
Patient seen and examined
Agree with DIETITIAN ASSISTANT note and assessment
Agree with DIETITIAN ASSISTANT plan
ECGs personally reviewed with stable QTc interval less than 540 ms and the patient is ventricularly paced
No significant arrhythmia on telemetry
Dose 5 of dofetilide today
EPS personally reviewed
Examination:
Alert and x 3
Nonfocal neurologically
JVP 6
Cor regular no murmur
Lungs clear to auscultation bilaterally
Abdomen soft nontender positive bowel sounds no extreme edema
Alert and x 3
84 y/o, presents with symptomatic persistent AFib, demonstrating increased burden of afib since stopping amiodarone and now has persistent afib with rapid rates. This is associated with decompensated congestive HFrEF requiring hospital admission and
diuresis. Recent echo with EF 30-35%, had been 45%. Refuses further amiodarone at this time for rhythm control. [id number]=5, maintained on eliquis.
Presented to EP lab, s/p PFA with LAPW and LA Focal tachycardia ablation. Elevated LA pressures at 18 and was given 40mg IV lasix with moderate diuresis.
Overnight on tele, she was V/AV paced with bursts AT/AF 120s, which became more frequent, asymptomatic.
IMPRESSION:
Persistent AFib
s/p PFA w/LAPW and AT ablation, 12/06/24
Recurrent AF/AT post procedure
Tikosyn initiation
Chronic systolic HFrEF 30=35%
VT, Bi-V ICD implant w/gen change 2019
Severe MR, s/p MV repair (2008 @[facility])
Spontaneous SDH, resolved (2020)
L breast CA s/p mastectomy
PLAN:
Tele- V/AV paced
refuses amiodarone but agreeable to tikosyn
dose #5 this morning- 125mcg Q12h- paced QT is 531- will monitor QTc/ST intervals, creatinine
some flushing yesterday with initiation, has improved and lessend
option of AV node ablation is available if tikosyn not tolerated
OAC Eliquis
Elevated LA pressures during procedure- given lasix 40mg IV post procedure and 12/07
Diuretic p.o. today
Improved BP and resume lisinopril today, continue spironolactone, carvedilol
Anticipate discharge this morning after fifth dose of dofetilide and post dofetilide ECG
Original Note:
Today's Communication / Plan
-
Dose #5 tikosyn this morning
if no changes with QT then ok for d/c
followup at [facility] as scheduled
Impression / Plan
-
PCP: Gabriel Kwon MD
CDY: Gunnar Simmons MD
84 y/o, presents with symptomatic persistent AFib, demonstrating increased burden of afib since stopping amiodarone and now has persistent afib with rapid rates. This is associated with decompensated congestive HFrEF requiring hospital admission and
diuresis. Recent echo with EF 30-35%, had been 45%. Refuses further amiodarone at this time for rhythm control. [id number], maintained on eliquis.
Presented to EP lab, s/p PFA with LAPW and LA Focal tachycardia ablation. Elevated LA pressures at 18 and was given 40mg IV lasix with moderate diuresis.
Overnight on tele, she was V/AV paced with bursts AT/AF 120s, which became more frequent, asymptomatic.
IMPRESSION:
Persistent AFib
s/p PFA w/LAPW and AT ablation, 12/06/24
Recurrent AF/AT post procedure
Tikosyn initiation
Chronic systolic HFrEF 30=35%
VT, Bi-V ICD implant w/gen change 2019
Severe MR, s/p MV repair (2008 @[facility])
Spontaneous SDH, resolved (2020)
L breast CA s/p mastectomy
PLAN:
Tele- V/AV paced
refuses amiodarone but agreeable to tikosyn
dose #5 this morning- 125mcg Q12h- paced QT is 531- will monitor QTc/ST intervals, creatinine
some flushing yesterday with initiation, has improved and lessend
option of AV node ablation is available if tikosyn not tolerated
OAC Eliquis
groin site stable
Elevated LA pressures during procedure- given lasix 40mg IV post procedure and 12/07
switch to PO lasix today
Improved BP and resume lisinopril today, continue spironolactine, carvedilol
monitor on tele through 5 doses tikosyn
anticipate d/c later this morning after last EKG
followup at [facility] as scheduled and with Dr. Lyons thereafter
Progress Note - Quality Assurance Supervisor Body
Subjective
Date of Service: December 09, 2024
Denies cp/palps/dyspnea
oob ambulating
facial flushing improved
Objective
Labs:
12/09/24 04:32
12/09/24 04:32
Labs
Hgb 10.5 g/dL (12.0-16.0) L 12/09/24 04:32
Hct 31.1 % (37.0-47.0) L 12/09/24 04:32
Plt Count 156 10^3/uL (130-400) 12/09/24 04:32
Sodium 139 mmol/L (135-145) 12/09/24 04:32
Potassium 4.2 mmol/L (3.5-5.1) 12/09/24 04:32
BUN 26 mg/dl (7-17) H 12/09/24 04:32
Creatinine 0.7 mg/dL (0.6-1.0) 12/09/24 04:32
Glucose 94 mg/dl (70-99) 12/09/24 04:32
Vital Signs and I&O:
Vital Signs
Temp Pulse Resp BP Pulse Ox
98.1 F 76 18 120/66 96
12/09/24 04:26 12/09/24 08:00 12/09/24 04:26 12/09/24 07:58 12/09/24 04:26
Vital Signs
Temp Pulse Resp BP Pulse Ox
98.1 F 76 18 120/66 96
12/09/24 04:26 12/09/24 08:00 12/09/24 04:26 12/09/24 07:58 12/09/24 04:26
Intake & Output
12/07/24 12/08/24 12/09/24 12/10/24
06:59 06:59 06:59 06:59
Intake Total 2530 / 2530 400 / 400 1140 / 1140 240 / 240
Output Total 700 / 700
Balance 1830 / 1830 400 / 400 1140 / 1140 240 / 240
Physical Exam
Physical Exam
AAOx3, MAEE 5/5
RRR S1 S2 no murmurs
CTA bilat non labored
soft abd, + bs
right groin site without ht/bleeding, non tender
bilat extremities w/trace edema, palpable distal pulses
--- NOTE | 2024-12-09 10:14 | CM ---
Called patients pharmacy to confirm Dofetilide is in stock and they said it will be coming in at 4pm today. Script sent to our pharmacy for 3 day supply to take home. Notified patient's nurse to provide patient with the 3 day supply for discharge.
[2024-12-09 10:52] VITALS: BP 111/55
--- NOTE | 2024-12-09 11:50 | W.DS.TRANS ---
DC Summary - Screw Machine Adjuster Automatic
-
Discharge Instructions:
Discharge Diagnosis/Procedures AFib, ATach, s/p ablation
Tikosyn initiation
Diet Low Cholesterol,2 Gram Sodium
Driving Restrictions No driving for 24 hours
Specialty Instructions Weigh Daily
Instructions:
Stand-Alone Forms: DC Instructions- Cath/EP Lab
Changes to Home Medications: Yes
Discharge Medications:
DC Medications w/original date entered in [employer]
amitriptyline 25 mg tablet 25 mg PO HS Sleep 02/19/09
carvedilol 12.5 mg tablet 25 mg PO BID Blood pressure 02/19/09
vit C 250 mg-vit E 90 mg-zinc 40 mg-copper 1 dr-dwuvfb-smpmpd capsule (PreserVision AREDS-2) 1 cap PO BID Supplement 05/11/17
atorvastatin 10 mg tablet 10 mg PO QPM High cholesterol 02/28/21
lisinopril 20 mg tablet 20 mg PO DAILY Blood pressure 02/28/21
apixaban 5 mg tablet (Eliquis) 5 mg PO BID Blood Clot Prevention/Tx 11/21/23
omega 2-aub-tap-fish oil 1,000 mg (120 mg-180 mg) capsule (Fish Oil) 2 cap PO DAILY Supplement 11/21/23
ibuprofen 200 mg tablet (Advil) 400 mg PO DAILYPRN PRN mild pain 10/21/24
propylene glycol 0.6 % eye drops (Systane Complete) 1 drp BOTH EYES TIDPRN PRN dryness 10/21/24
furosemide 20 mg tablet 20 mg PO DAILY #30 tabs 10/24/24
spironolactone 25 mg tablet 25 mg PO DAILY #30 tabs 10/24/24
Biocorneum 1 applic topical DAILY PRN reduce scaring 12/06/24
multivitamin-ferrous fumarate-folic acid 18 mg-400 mcg tablet (Centrum) 1 tab PO DAILY 12/06/24
dofetilide 125 mcg capsule 125 mcg PO Q12 #60 caps 12/08/24
Home Medication Changes
NEW: dofetilide
Pending Results: No
== END 2024-12-09 11:33 | disposition home or self-care (01) | DRG 274 ==
LOC: IVU 08:08
PROVIDERS: Nurse Practitioner Adult Health; ADMITTING PHYSICIAN Internal Medicine Cardiovascular Disease; FAMILY PHYSICIAN Internal Medicine
PROC: 02K83ZZ Map Conduction Mechanism, Percutaneous Approach (ICD-10-PCS; 2024-12-06)
PROC: 5A2204Z Restoration of Cardiac Rhythm, Single (ICD-10-PCS; 2024-12-06)
PROC: B244ZZZ Ultrasonography of Right Heart (ICD-10-PCS; 2024-12-06)
PROC: 02583ZF Destruction of Conduction Mechanism using Irreversible Electroporation, Percutaneous Approach (ICD-10-PCS; 2024-12-06)
PROC: 4B02XTZ Measurement of Cardiac Defibrillator, External Approach (ICD-10-PCS; 2024-12-06)
DX: I48.19 Other persistent atrial fibrillation (principal); I50.22 Chronic systolic (congestive) heart failure; I47.19 Other supraventricular tachycardia; I11.0 Hypertensive heart disease with heart failure; Z88.3 Allergy status to other anti-infective agents; Z79.01 Long term (current) use of anticoagulants; Z95.810 Presence of automatic (implantable) cardiac defibrillator; Z95.2 Presence of prosthetic heart valve; Z90.49 Acquired absence of other specified parts of digestive tract; Z90.10 Acquired absence of unspecified breast and nipple; Z87.891 Personal history of nicotine dependence; Z85.3 Personal history of malignant neoplasm of breast
CPT/HCPCS: 80048; 83735; 85027; 85347; 86900; 86901; 93005; 93655; 93656; 93657; C1730; C1732; C1733; C1759; C1766; C1894; C2630